=== PATIENT | male | born 1935 | race Caucasian/White ===

== ENCOUNTER 2016-10-13 13:31 | Emergency (ER) | payer OTHER, MEDICARE ==
[~2016-10-13] VITALS: Ht 157.5 cm; Wt 67.7 kg
[~2016-10-13 13:31] MED LIST: DYAZ37.57 PO; GAS-CAP3 PO; MUCI600T PO; TERA1 PO; ZEGE20CA PO
[2016-10-13 13:40] VITALS: BP 186/74; PULSE 50; RESP 18; TEMP 97.8
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
[2016-10-13] MEDS ORDERED: TETANUS/DIPHTHERIA TOXOID ADULT 0.5 ML VIAL IM ONE (14:00)
[2016-10-13] MEDS ORDERED: ACETAMINOPHEN/HYDROcodone 325 MG/5 MG TAB PO ONE (14:00)
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
[2016-10-13] MEDS ORDERED: BACI500O9 TOPICAL (16:54)
[2016-10-13 17:28] VITALS: BP 171/81; PULSE 81; RESP 18; O2SAT 97
== END 2016-10-13 17:29 | disposition home or self-care (01) ==
LOC: NEPE 13:31
DX: S20.20XA Contusion of thorax, unspecified, initial encounter (principal); K80.20 Calculus of gallbladder without cholecystitis without obstruction; N28.1 Cyst of kidney, acquired; S00.81XA Abrasion of other part of head, initial encounter; S51.811A Laceration without foreign body of right forearm, initial encounter; V59.9XXA Occupant (driver) (passenger) of pick-up truck or van injured in unspecified traffic accident, initial encounter; Z23 Encounter for immunization
CPT/HCPCS: 70450; 71250; 72125; 74176; 90471; 90714

== ENCOUNTER 2016-11-30 06:09 | Day surgery (SDC) | payer MEDICARE ==
[~2016-11-30] VITALS: Ht 160 cm; Wt 65.1 kg
[~2016-11-30 06:09] MED LIST changes: +BACI500O9 TOPICAL
[2016-11-30] MEDS ORDERED: CALC1TAB87 PO (06:55)
[2016-11-30] MEDS ORDERED: LEVO50TA4 PO (06:55)
[2016-11-30] MEDS ORDERED: PARO10TA2 PO (06:55)
[2016-11-30] MEDS ORDERED: MUCI600T PO (06:55)
[2016-11-30] MEDS ORDERED: TERA2CAP3 PO (06:55)
[2016-11-30] MEDS ORDERED: MULTTAB67 PO (06:55)
[2016-11-30 06:59] VITALS: BP 192/65; PULSE 50; RESP 18; TEMP 97.9; O2SAT 98
[2016-11-30] MEDS ORDERED: IOHEXOL 350 MG/ML 100 ML BTL (for Cath Lab) OTHER ONE (07:48)
[2016-11-30] MEDS ORDERED: IOHEXOL 350 MG/ML 50 ML BTL (for Cath Lab) OTHER ONE (07:48)
[2016-11-30] MEDS ORDERED: HEPARIN-NS/PF INJ 500 ML ONE (07:51)
[2016-11-30] MEDS ORDERED: MIDAZOLAM HCL 2 MG/2 ML VIAL ONE (07:59)
[2016-11-30] MEDS ORDERED: LABETALOL HCL 100 MG/20 ML VIAL ONE (08:30)
--- NOTE | 2016-11-30 09:12 | CATHPROC ---
[employer] HIS Report Study Information Study Number Scheduled Start Study Start [id number] 11/30/2016 Nov 30 2016 7:48AM Referring Institution Admit Source Facility Department 1 Other [facility] - Scale Manager Physician and Clinical Staff Initial MD Osuna, Kevin Boyd RN, Luis A Larkin cathlab, cathlab Recorder Nadir Arreola RCIS(BS) Carey Bhandari RCIS TECH2 Procedures Performed Procedure Location (Site) Vessel Name Angiogram LV Asc. Aorta (A) Coronary Angiograms LCA Left Coronary Coronary Angiograms RCA Right Coronary L Heart Cath Equipment Time Correctional Guard Description Size Mfg Part Number Used/Scraped TRANSDUCER, TRUWAVE 07:49 CUEVA REED * [id number] Used W/STOCKCOCK [id number] *[id number] *[id number] [id number] *[id number] [id number] *[id number] [id number] *[id number] 07:49 MEDLINE INDUSTRIES PACK, CCL CUSTOM * Used *[id number] 07:49 MEDLINE PACER PEN, SKIN DUAL W/ RULER * [id number] Used [id number] 07:49 [employer] MEDICAL SHEATH, FR6.5 PRELUDE 11CM FR 6.5 038ACT Used *[id number] 07:49 [employer] MEDICAL WIRE, 3MMJ .035 180CM 180CM Used *[id number] 07:49 NAMIC MANIFOLD, 4 PORT * Used *[id number] 07:49 [employer]COMED OMNIPAQUE, 350 MG, 100ML 100ML [id number] Used 08:44 [employer]COMED OMNIPAQUE, 350 MG, 150ML 150ML [id number] Used 08:44 [employer]COMED OMNIPAQUE, 350 MG, 50ML 50ML [id number] Used [id number] 07:49 [employer]UP MEDICAL BLANKET,WARM AIR CCL * Used *[id number] History: Allergies Allergy Reaction No Known Allergies History: Risk Factors Family History of Hypertension Dyslipidemia Previous IA Previous Heart Failure Premature CAD Yes No Yes No No Prior Valve Prior PCI Prior CABG Surgery No No No Cerebrovascular Peripheral Artery Chronic Lung On Dialysis Diabetes Disease Disease Disease No No No No No History: Stress Tests Stress or Imaging Studies Performed No History: Other Disease Selection Items HTN History: Other Current Smoker Packs a Day Years Used Pack Years Yes 1 40 40 Labs Hgb (g/dl) Hct (%) WBC (l/cumm) Platelets (thousands) 12.00-18.00 37.00-55.00 4.80-10.80 140.00-450.00 12.5 37.8 6.5 222 Glucose (mg/dl) BUN (mg/dl) Creatinine (mg/dl) BUN:Creatinine (1:x) 60.00-110.00 8.00-20.00 0.10-9.00 10.00-20.00 102 12 1.1 10.9 Na (meq/l) K (meq/l) 138.00-146.00 3.80-5.10 133 5.1 INR (PTT:PT) 0.50-2.00 1.1 CPK-MB (ng/ML) 0.00-7.00 Not Drawn Medication Medication Total Dose (Bolus/Oral) Medication Total Dosage/Unit 1% XYLOCAINE 20 mL LABETOLOL 20 mg VERSED 1 mg Medications (Bolus/Oral) Medication Time Given Dosage/Unit Administered By Reason VERSED 11/30/2016 8:24:02 AM 1 mg Luis A Boyd RN 1 mg VERSED given in lab by Luis A Boyd RN in Left Forearm via Peripheral IV. Ordered by Summer Osuna. 1% XYLOCAINE 11/30/2016 8:24:04 AM 20 mL Kevin Osuna 20 mL 1% XYLOCAINE given in lab by Kevin Osuna in Right Groin via Subcutaneous. Ordered by Kevin Concepcion ms. LABETOLOL 11/30/2016 8:32:23 AM 20 mg Luis A Boyd RN 20 mg LABETOLOL given in lab by Luis A Boyd RN in Left Forearm via Peripheral IV. Ordered by Kevin Godfrey. Medication (Drip) Medication Time Given Dosage/Unit Concentration/Unit Diluent (ml) Solution IV Solutions 11/30/2016 7:48:14 AM 0 mL (IV) 500 NaCl .9 Patient arrived on IV Solutions given by pauly coats in Left Forearm via Peripheral IV. Pump/Dri p Flow = 20 ml/hr using NaCl .9. Ordered by Kevin Osuna. Initial Case Assessment Cardiovascular HR Rhythm NIBP Chest Pain 56 sinus 189/68 0 Edema Present Skin color Skin None Normal Warm Dry Circulatory - Right Pulses Dorsalis Pedis Femoral 2 2 Scale (0,1,2,3,4,d) Circulatory - Left Pulses Dorsalis Pedis Femoral 2 2 Scale (0,1,2,3,4,d) Neurological State Oriented to time-place- Alert Moves all extremities person Respiration - General Respiration Rate SpO2 (%) (B/min) 17 98 Final Case Assessment Cardiovascular HR Rhythm NIBP Chest Pain 47 alexis 168/77 0 Edema Present Skin color Skin None Normal Warm Dry Circulatory - Right Pulses Dorsalis Pedis Femoral 2 2 Scale (0,1,2,3,4,d) Circulatory - Left Pulses Dorsalis Pedis Femoral 2 2 Scale (0,1,2,3,4,d) Neurological State Oriented to time-place- Alert Moves all extremities person Respiration - General Respiration Rate SpO2 (%) (B/min) 17 95 Chronological Log Time Study Chronological Log 7:48:03 Patient arrived via Bed. 7:48:04 Patient Name, D.O.B, / Armband Verified By R.N. 7:48:04 Consent signed by the physician and the patient and verified by the Scale Manager staff. 7:48:05 Pre-op and post- op instructions given; patient acknowledges understanding of instructions. 7:48:07 Presedation assessment performed by Scale Manager RN. 7:48:08 Immediate Presedation assesment performed by physician. 7:48:09 Patient has been NPO for More than 6Hrs. 7:48:10 Skin Breakdown- 7:48:13 Patient Warmer Placed on the Table. 7:48:13 Gurinder Prominences Protected 7:48:14 A # 20 IV was noted in the Forearm (left). Grade = 0 Patient arrived on IV Solutions given by cathlab, cathashok in Left Forearm via Peripheral IV. Pu mp/Drip Flow = 20 ml/hr 7:48:14 using NaCl .9. Ordered by Kevin Osuna. 7:48:15 History and physical on the chart or being dictated. Vitals capture started with the following parameters, Patient=Adult, Interval=5 min, Initial Pr kzqxvw=514 mmHg, 7:55:32 Deflation Rate=5 mmHg Assessment: Initial Case, HR=56 BPM, Rhythm=sinus, UDEN=154/68 mmhg, Chest Pain=0, Edema=None, Color=Normal, Skin = Warm, Dry Right Pulses: Zaire Ped=2, Femoral=2 7:55:33 Left Pulses: Z[place] Ped=2, Femoral=2 Neurological: State=Alert, Ox3, GAMBOA Respiration: Resp=17 B/min, SpO2=98 % 7:56:01 Reference ECG taken 7:56:56 HR=54 bpm, KDSH=195/68 mmhg, SpO2=98.0 %, Resp=15 B/min, Pain=0, Dao=10, Parmar=2 8:01:59 HR=55 bpm, IRBV=111/71 mmhg, SpO2=97.0 %, Resp=14 B/min, Pain=0, Dao=10, Parmar=2 8:02:46 Pressure channel 1 zeroed. 8:03:16 MD paged 8:04:25 MD responded 8:06:23 HR=52 bpm, SPRK=697/67 mmhg, SpO2=98.0 %, Resp=12 B/min, Pain=0, Dao=10, Parmar=2 8:11:59 HR=50 bpm, SAVO=956/66 mmhg, SpO2=96.0 %, Resp=15 B/min, Pain=0, Dao=10, Parmar=2 8:16:19 HR=50 bpm, YFXD=531/66 mmhg, SpO2=98.0 %, Resp=12 B/min, Pain=0, Dao=10, Parmar=2 8:19:22 MD arrived. 8:19:29 Contrast Scanned 8:19:30 Immediate Presedation assesment performed by physician. 8:21:22 HR=49 bpm, KSGB=377/70 mmhg, SpO2=96.0 %, Resp=10 B/min, Pain=0, Dao=10, Parmar=2 Time Out. Correct patient, correct procedure,correct physician, ,power injector loaded with cont rast with surgical team 8:23:19 present. Time Out Concurred by , individual staff in procedure 8:23:31 Case Start 8:23:31 Verbal Stimulation=2 Physical Stimulation=2 Airway=2 Respiration=2 TOTAL=8. (0=absent, 1=yuan ited, 2=present) 8:24:02 1 mg VERSED given in lab by Luis A Boyd RN in Left Forearm via Peripheral IV. Ordered by Kevin Gross. 8:24:04 20 mL 1% XYLOCAINE given in lab by Kevin Osuna in Right Groin via Subcutaneous. Ordered by Kevin Osuna. 8:26:19 HR=52 bpm, JOPK=709/69 mmhg, SpO2=97.0 %, Resp=11 B/min, Pain=0, Dao=10, Parmar=2 8:27:37 Access site was Right Femoral Artery. 8:27:43 A SHEATH, FR6.5 PRELUDE 11CM FR 6.5 was advanced into the Fem Art (right) using the Percutan eous technique. A JL 4.0 INFINITI CATHETER FR 6 was advanced over a wire. OMNIPAQUE, 350 MG, 100ML 100ML was use d for 8:27:48 injections. Recorded Pressure: Ao, HR=50, Condition=Condition 1 8:29:59 (Aorta) Ao 178/51/93 After removing the current catheter a JL 5.0 INFINITI CATHETER FR 6 was advanced over a WIRE, 3M MJ .035 180CM 8:30:59 180CM. 8:31:22 HR=51 bpm, GRFA=700/75 mmhg, SpO2=96.0 %, Resp=18 B/min, Pain=0, Dao=10, Parmar=2 8:32:23 20 mg LABETOLOL given in lab by Luis A Boyd RN in Left Forearm via Peripheral IV. Ordered b Kevin Shi. 8:34:47 The LCA was injected and visualized at various angles. OMNIPAQUE, 350 MG, 100ML 100ML used. 8:36:21 HR=43 bpm, HXLG=684/65 mmhg, SpO2=95.0 %, Resp=11 B/min, Pain=0, Dao=10, Parmar=2 After removing the current catheter a JR 4.0 INFINITI CATHETER FR 6 was advanced over a WIRE, 3M MJ .035 180CM 8:37:06 180CM. 8:38:47 The RCA was injected and visualized at various angles. OMNIPAQUE, 350 MG, 100ML 100ML used. After removing the current catheter a PIGTAIL STR INFINITI CATHETER FR 6 was advanced over a WIR E, 3MMJ .035 8:40:36 180CM 180CM. 8:41:22 HR=48 bpm, DISN=870/63 mmhg, SpO2=93.0 %, Resp=11 B/min, Pain=0, Dao=10, Parmar=2 Recorded Pressure: LV, Ao, HR=78, Condition=Condition 1 8:42:59 (Left Ventricle) LV 107/8/7, (Aorta) Ao 153/43/78 8:43:39 The Asc. Aorta (A) was injected at 20 cc/sec for a total of 40. OMNIPAQUE, 350 MG, 50ML 50 ML used. 8:45:27 Catheter was removed 8:45:31 Case End 8:46:17 HR=47 bpm, UAYJ=011/77 mmhg, SpO2=93.0 %, Resp=14 B/min, Pain=0, Dao=10, Parmar=2 Assessment: Final Case, HR=47 BPM, Rhythm=alexis, OEXF=408/77 mmhg, Chest Pain=0, Edema=None, Color=Normal, Skin = Warm, Dry Right Pulses: Zaire Ped=2, Femoral=2 8:46:37 Left Pulses: Zaire Ped=2, Femoral=2 Neurological: State=Alert, Ox3, GAMBOA Respiration: Resp=17 B/min, SpO2=95 % 8:47:57 Catheter(s) removed without difficulty Vitals capture started with the following parameters, Patient=Adult, Interval=5 min, Initial P vikqqfb=552 mmHg, 8:48:03 Deflation Rate=5 mmHg 8:48:10 No case complications noted. 8:48:11 Cine recording checked. 8:48:13 Bedside Report will be given. 8:48:16 Verbal Stimulation=2 Physical Stimulation=2 Airway=2 Respiration=2 TOTAL=8. (0=absent, 1=l imited, 2=present) 8:48:23 A Left Heart Cath was performed. 8:48:47 HR=47 bpm, WIHZ=451/68 mmhg, SpO2=95.0 %, Resp=14 B/min, Pain=0, Dao=10, Parmar=2 8:49:35 Sheath removed; pressure applied to access site. 8:53:46 HR=43 bpm, SQTW=856/79 mmhg, SpO2=92.0 %, Resp=15 B/min, Pain=0, Dao=10, Parmar=2 8:58:47 HR=44 bpm, YUXM=836/70 mmhg, SpO2=93.0 %, Resp=16 B/min, Pain=0, Dao=10, Parmar=2 9:03:48 HR=42 bpm, ZFAD=756/67 mmhg, SpO2=92.0 %, Resp=15 B/min, Pain=0, Dao=10, Parmar=2 9:08:49 HR=44 bpm, KFRP=162/62 mmhg, SpO2=94.0 %, Resp=13 B/min 9:09:00 Sterile dressing applied to site 9:10:14 Vitals capture stopped. 9:12:[address] [facility] Study - Contrast Media Used In Study Contrast Total Opened (mL) Total Used (mL) Total Wasted (mL) Omnipaque 110 110 0 End Study - Maximum Contrast Load Max Contrast Load (mL) 295.9 End Study - Radiation Exposure Fluoro Time (minutes) 5.5 End Study - Sheaths Sheaths Pulled By Sheath Hold Time (min) Carey Ty 20 End Study - Patient Disposition Complications Transferred To Interventional Outcome No Scale Manager Holding No attempt made
[2016-11-30] MEDS ORDERED: SODIUM CHLOR 0.9% 250 ML INJ 250 ML IV PRN (09:45)
[2016-11-30] MEDS ORDERED: ATROPINE SULFATE 1 MG/ML VIAL IV PRN (09:45)
[2016-11-30] MEDS ORDERED: LORazepam 2 MG/ML VIAL IV PRN (09:45)
[2016-11-30] MEDS ORDERED: ONDANSETRON HCL 4 MG/2 ML VIAL IV PRN (09:45)
[2016-11-30] MEDS ORDERED: BACITRACIN OINT 0.9 GM PKT TOP ONE (09:45)
[2016-11-30] MEDS ORDERED: MISC INFORMATION XX ONE (09:45)
[2016-11-30] MEDS ORDERED: LIDOCAINE HCL 1% 50 ML VIAL INFIL PRN (09:45)
--- NOTE | 2016-11-30 11:00 | MA ---
cc: KEVIN OSUNA MD DATE 11/30/2016 PROCEDURE NOTE The patient was prepped and draped in the usual fashion. A 7 sheath was inserted percutaneously in the right femoral artery. Initial blood pressure was 190/80. 20 mg of labetalol was given with decrease in systolic blood pressure to 165 to 175. CORONARY ANGIOGRAPHY It was noted that the patient's aorta was extremely tortuous and dilated. Coronary angiography demonstrated a normal left main. The left anterior descending artery was essentially normal throughout its course. The left circumflex artery was normal throughout its course. The right coronary was anatomically dominant and normal throughout its course. Ascending aortogram was done revealing somewhat dilated ascending aortogram as well as transverse and descending aortas. +4 aortic insufficiency was present with an EF in the JAYSON projection estimated at 50%. Some degree of mitral regurgitation was also present. Hemostasis was achieved with direct pressure. IMPRESSION AND RECOMMENDATIONS The findings are as above. He would appear to be a candidate for aortic valve replacement and mitral valve repair. We will also discuss with the surgeons possible need for aortoplasty as well Kevin Osuna MD DLW/SSB /8:53 AM /10:48 AM
--- NOTE | 2016-11-30 11:26 | PD.CAR.PN ---
CVT Progress Note Subjective/Hospital Course: sts discussed with pt RISK SCORES About the STS Risk Calculator Procedure: AV Replacement Risk of Mortality: 3.46% Morbidity or Mortality: 25.973% Long Length of Stay: 11.631% Short Length of Stay: 20.43% Permanent Stroke: 1.982% Prolonged Ventilation: 14.135% DSW Infection: 0.278% Renal Failure: 6.668% Reoperation: 13.045% Objective: Vital Signs Date Time Temp Pulse Resp B/P Pulse Ox O2 Delivery O2 Flow Rate FiO2 11/30/16 09:23 95 Room Air 11/30/16 06:59 97.9 50 18 192/65 98 Gloria Dodd November 30, 2016 11:25
--- NOTE | 2016-11-30 12:13 | MB ---
cc: BARBARA YOUNG DATE OF CONSULTATION: 11/30/2016 DATE OF : 1935 HISTORY OF PRESENT ILLNESS An 81-year-old male, routine visit with Dr. Osuna with history of aortic regurgitation, moderate mitral valve regurgitation and tricuspid regurgitation. His last echo apparently showed a decrease to 50% with some mild increase in left ventricular diastolic dimension. The patient remains asymptomatic. No chest pain. No paroxysmal nocturnal dyspnea. No shortness of breath. No syncope. The patient lives with his . He still drives. He has some very minimal balance disturbance but he goes to the gym three days a week. 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 PAST MEDICAL HISTORY 1. Anemia. 2. Anxiety. 3. Mild cognitive disorder. 4. Depression. 5. Benign prostatic hypertrophy. 6. Gastritis. 7. Gastroesophageal reflux disease. 8. Hypertension. 9. Hypothyroidism. 10.Valvular heart disease. 11.Prostate cancer five years ago. PAST SURGICAL HISTORY 1. Bilateral cataract surgery. 2. Colonoscopy. 3. EGD. 4. Left inguinal hernia repair. 5. Prostate surgery. ALLERGIES He has no known allergies. MEDICATIONS His home medications include: 1. Calcium carbonate. 2. Levothyroxine. 3. Mucinex. 4. Multivitamin. 5. Paxil. 6. Terazosin at night. FAMILY HISTORY The patient is , lives with his . Five children. Retired teacher. Smoked for about 30 years, quit 4 years ago. He is from [facility] but has lived here for a long time. His is a retired nurse from our facility. REVIEW OF SYSTEMS GENERAL: In general no night sweats, fever, heat or cold intolerance. SKIN: No psoriasis, itching or hives. HEENT: No blurred vision. Positive for some mild hearing loss. RESPIRATORY: No cough or shortness of breath. CARDIOVASCULAR: No chest pain. No paroxysmal nocturnal dyspnea. No orthopnea. GASTROINTESTINAL: No diarrhea or vomiting. GENITOURINARY: No burning, frequency, urgency. REGISTERED NURSE SUPERVISOR: No history of TIA, CVA, seizure disorder. ENDOCRINE: Positive for hypothyroidism. No history of diabetes. PHYSICAL EXAMINATION VITAL SIGNS: Blood pressure 190/60, heart rate 50, temperature 97.9, room air sat 95%. GENERAL: Patient is awake and alert, in no acute distress. HEENT: Head is normocephalic, atraumatic. Pupils equal and reactive. Oral mucosa pink and moist. NECK: Supple. No JVD. HEART: Heart sounds S1, S2. There is a grade 2 systolic murmur at the apex, a grade 2/6 diastolic murmur at the left sternal border. ABDOMEN: Soft, flat, nontender. EXTREMITIES: No cyanosis, clubbing or edema. LABORATORY Sodium 133, potassium 5.1, BUN 12, creatinine 1.15. INR 1.1. Hemoglobin 12, hematocrit 37, white cell count 6.5, platelet count 222. EKG EKG: Sinus rhythm with some LVH, some ST T-wave inversion secondary to his extensive LVH. IMPRESSION This is an 81-year-old male with moderate to severe aortic insufficiency, moderate mitral regurgitation. Cardiac films will be evaluated by Dr. Barbara Young. The patient's EF is 50% with no evidence of occlusive coronary artery disease. The patient will be evaluated for aortic valve replacement. Procedures, alternatives and risks will be discussed by Dr. Barbara Young. In the meantime he is to continue his blood pressure medication. He has no medicine that needs to be held. He does have some advanced age so he will need a CT of the chest to evaluate for calcification on the aorta and evaluation for surgery with risk mortality is 3.46, morbidity mortality 25, renal failure 6%. All these will be discussed with the patient and documented in the electronic record. Dictated by: MARBELLA Bowie MD JANICE Fernandez/TRISTAN /11:30 AM /12:14 PM
--- NOTE | 2016-11-30 12:44 | RADRPT ---
EXAM DATE/TIME: 11/30/2016 11:51 [facility] COMPARISON: No previous studies available for comparison. INDICATIONS : Preop aortic valve replacement. MEDICAL HISTORY : Hernia, hiatal. Arthritis. Thyroid disease. HTN. GERD. Ulcer. Enlarged prostate. SURGICAL HISTORY : Bilateral cataracts. Bilateral inguinal hernia repair. Nasal polyps. ENCOUNTER: Initial ACUITY: 1 day PAIN SCORE: 0/10 LOCATION: Bilateral neck PEAK SYSTOLIC VELOCITIES (cm/sec): ICA/CCA RATIO: Right: 1.2 Left: 1.0 ICA: Right: 82 Left: 81 CCA: Right: 71 Left: 80 ECA: Right: 58 Left: 56 VERTEBRAL: Right: 61 antegrade Left: 104 antegrade Elevated flow velocities and ICA/CCA ratios have been found to correlate with increased degrees of vessel stenosis, calculated as percentage of diameter relative to a normal segment of distal ICA/CCA FINDINGS: RIGHT CAROTID: No significant stenosis is visualized. The waveforms are within normal limits. LEFT CAROTID: No significant stenosis is visualized. The waveforms are within normal limits. VERTEBRAL ARTERIES: Antegrade flow is seen in both vertebral arteries. MISCELLANEOUS: None. CONCLUSION: No evidence of flow-limiting carotid stenosis. Radames Funk MD on November 30, 2016 at 12:41 Board Certified Radiologist. This report was verified electronically.
[2016-11-30 12:49] LABS: AUTOMATED NEUTROPHIL # 4.3 TH/MM3 (1.8-7.7); BASOPHIL # 0.1 TH/MM3 (0-0.2); EOSINOPHIL # 0.1 TH/MM3 (0-0.4); EOSINOPHIL % 1.4 % (0.0-4.0); HEMATOCRIT 35.7 % (39.0-51.0); HEMO FLAGS DIFF FINAL; LYMPH % 17.3 % (9.0-44.0); MEAN CELL VOLUME 91.7 FL (80.0-100.0); MEAN CORPUSCULAR HEMOGLOBIN 30.4 PG (27.0-34.0); MEAN CORPUSCULAR HGB CONC 33.1 % (32.0-36.0); MONO % 5.9 % (0.0-8.0); NEUT % 74.4 % (16.0-70.0); PLATELET COUNT 184 TH/MM3 (150-450); RED BLOOD COUNT 3.89 MIL/MM3 (4.50-5.90); RED CELL DISTRIBUTION WIDTH 13.6 % (11.6-17.2); WHITE BLOOD COUNT 5.8 TH/MM3 (4.0-11.0)
[2016-11-30 12:59] LABS: PROTHROMBIN TIME - PATIENT 11.4 SEC (9.8-11.6)
[2016-11-30 13:05] LABS: BLOOD, URINE NEG (NEG); GLUCOSE,URINE NEG (NEG); KETONE, URINE NEG (NEG); NITRITE,URINE NEG (NEG); PH, URINE 7.5 (5.0-8.5); URINE COLOR LIGHT-YELLOW (YELLW/STRAW)
[2016-11-30 13:10] LABS: COMMENT (UR) CULT NOT INDICATED; CULTURE IF INDICATED CULT NOT INDICATED
[2016-11-30 13:12] LABS: ANION GAP 8 MEQ/L (5-15); BICARBONATE 27.1 MEQ/L (21.0-32.0); BLOOD UREA NITROGEN 11 MG/DL (7-18); CHLORIDE 97 MEQ/L (98-107); POTASSIUM 4.2 MEQ/L (3.5-5.1); SODIUM (NA) 132 MEQ/L (136-145)
[2016-11-30 13:13] LABS: GLOMERULAR FILTRATION RATE 74 ML/MIN (>89)
--- NOTE | 2016-11-30 15:48 | RADRPT ---
EXAM DATE/TIME: 11/30/2016 15:34 [facility] COMPARISON: CT THORAX W/O CONTRAST, October 13, 2016, 15:35. INDICATIONS : Pre-operative aortic valve replacement, evaluate for aortic calcification. RADIATION DOSE: 4.01 CTDIvol (mGy) MEDICAL HISTORY : Cardiovascular disease. Gastroesophageal reflux disease. Hypertension. SURGICAL HISTORY : Inguinal hernia repair. ENCOUNTER: Initial ACUITY: 1 day PAIN SCALE: 0/10 LOCATION: Bilateral chest TECHNIQUE: Volumetric scanning of the chest was performed. Using automated exposure control and adjustment of t he mA and/or kV according to patient size, radiation dose was kept as low as reasonably achievable to obtain optimal diagnostic quality images. FINDINGS: LUNGS: There is no consolidation or pneumothorax. No concerning pulmonary nodule is visualized. There is mi ld scarring. PLEURAE: There is no pleural thickening or pleural effusion. MEDIASTINUM: The heart and great vessels demonstrate no acute abnormality. There is no mediastinal or hilar lymph adenopathy. There are minimal calcifications along the periphery of the aortic valve region. The hear t size is moderately enlarged with no pericardial effusion. Atherosclerotic changes are again noted i n the aorta with dilatation and tortuosity. This does not appear significantly changed. AXILLAE: Within normal limits. No lymphadenopathy. MUSCULOSKELETAL: Within normal limits for patient age. MISCELLANEOUS: The visualized upper abdominal organs demonstrate no acute abnormality. CONCLUSION: 1. There are minimal calcifications along the periphery of the aortic valve region. No definite centr al calcifications. 2. Moderate cardiomegaly and dilatation of the thoracic aorta with tortuosity. This is not significa ntly changed. Canelo Turner MD on November 30, 2016 at 15:44 Board Certified Radiologist. This report was verified electronically.
--- NOTE | 2016-11-30 16:01 | RADRPT ---
EXAM DATE/TIME: 11/30/2016 15:09 [facility] COMPARISON: CT THORAX W/O CONTRAST, November 30, 2016, 15:34. INDICATIONS : Pre op for surgery. MEDICAL HISTORY : Hiatal hernia. Arthritis. Thyroid disease. HTN. GERD. Ulcer. Enlarged prostate. SURGICAL HISTORY : Bilateral inguinal hernia repair. Nasal polyps. ENCOUNTER: Initial ACUITY: 2 days PAIN SCORE: 6/10 LOCATION: Bilateral upper chest FINDINGS: Frontal and lateral views of the chest demonstrate mild enlargement cardiac silhouette with tortuous descending thoracic aorta. No effusion, consolidation, or pneumothorax is appreciated. Bones demonstr ate no acute finding. CONCLUSION: 1. No acute cardiopulmonary abnormality is identified. 2. Very tortuous descending thoracic aorta. Radames Evangelista MD on November 30, 2016 at 15:57 Board Certified Radiologist. This report was verified electronically.
[2016-11-30 18:15] LABS: HEMOGLOBIN A1a 1.1 %; HEMOGLOBIN A1b 1.7 %; HEMOGLOBIN Ao 85.1 %; HEMOGLOBIN LA1C 2.2 %; HEMOGLOBIN P3 3.6 %
--- NOTE | 2016-12-01 15:41 | EKG ---
Date Performed: 11/30/2016 Time Performed: 10:56:00 PTAGE: 81 years EKG: Sinus bradycardia. Prolonged QT interval LVH with secondary repolarization abnormality Exte nsive ST-T changes are probably due to ventricular hypertrophy Abnormal ECG Compared to prior tracing no significant change PREVIOUS TRACING : 01/27/2013 14.43 DOCTOR: Davy Abad Interpretating Date/Time 12/01/2016 15:40:49
--- NOTE | 2016-12-02 08:23 | RSPPFT ---
DATE OF PROCEDURE: 11/30/16 COMMENTS: VOLUMES DYNAMIC: FVC and FEV1 normal. FLOWS: FEV1% and FEF 25-75 normal. IMPRESSION: Normal simple spirometry.
--- NOTE | 2016-12-16 11:44 | RSPPFT ---
DATE OF PROCEDURE: 11/30/16 COMMENTS: VOLUMES DYNAMIC: FVC and FEV1 normal. FLOWS: FEV1% and FEF 25-75 normal. IMPRESSION: This is a normal simple spirometry.
== END 2016-11-30 16:16 | disposition home or self-care (01) ==
LOC: HDOC 06:09 → HDIC 06:10 → HDOC 16:16
PROVIDERS: ATTEND Internal Medicine Cardiovascular Disease
DX: I08.0 Rheumatic disorders of both mitral and aortic valves (principal); I10 Essential (primary) hypertension; E03.9 Hypothyroidism, unspecified; F41.9 Anxiety disorder, unspecified; K21.9 Gastro-esophageal reflux disease without esophagitis; F32.9 Major depressive disorder, single episode, unspecified; N40.0 Benign prostatic hyperplasia without lower urinary tract symptoms; Z85.46 Personal history of malignant neoplasm of prostate; Z01.818 Encounter for other preprocedural examination; Z01.811 Encounter for preprocedural respiratory examination
CPT/HCPCS: 71020; 71250; 80048; 81001; 83036; 85025; 85610; 86850; 86900; 86901; 87641; 93005; 93454; 93567; 93880; 94010; C1769; C1893; J1644; J2250; Q9967

== ENCOUNTER 2016-12-11 07:48 | Inpatient (IN) | payer MEDICARE ==
[~2016-12-11] VITALS: Ht 157.5 cm; Wt 70.0 kg
[~2016-12-11 07:48] MED LIST changes: -BACI500O9 TOPICAL; +CALC1TAB87 PO; -DYAZ37.57 PO; -GAS-CAP3 PO; +LEVO50TA4 PO; +MULTTAB67 PO; +PARO10TA2 PO; -TERA1 PO; +TERA2CAP3 PO; -ZEGE20CA PO
[2016-12-14] VITALS (14 sets, daily range): BP systolic 94–187; BP diastolic 51–76; PULSE 46–54; RESP 12–20; TEMP 97.7–98.6; O2SAT 96–99
[2016-12-14] MEDS ORDERED: EPINEPHrine HCL (1:1000) 1 MG/ML VIAL IV ONE (05:00)
[2016-12-14] MEDS ORDERED: PHENYLEPHRINE HCL 10 MG/ML VIAL IV ONE (05:00)
[2016-12-14] MEDS ORDERED: LIDOCAINE HCL 1% 30 ML VIAL OTHER ONE (05:00)
[2016-12-14] MEDS ORDERED: SODIUM BICARBONATE 8.4% INJ 50 MEQ/50 ML SYR IV ONE (05:00)
[2016-12-14] MEDS ORDERED: VECURONIUM BROMIDE 10 MG VIAL IV ONE (05:00)
[2016-12-14] MEDS ORDERED: GLYCOPYRROLATE 0.2 MG/ML VIAL IV ONE (05:00)
[2016-12-14] MEDS ORDERED: PROTAMINE SULFATE 250 MG/25 ML VIAL IV ONE (05:00)
[2016-12-14] MEDS ORDERED: MAGNESIUM SULFATE 1000 MG/2 ML VIAL (PED) IV ONE (05:00)
[2016-12-14] MEDS ORDERED: ARTIFICIAL TEARS OPTH OINT 3.5 APPLIC/3.5 GM TUBO ONE (05:00)
[2016-12-14] MEDS ORDERED: HEPARIN SODIUM - SQ 10,000 UNITS/ML VIAL SQ ONE (05:00)
[2016-12-14] MEDS ORDERED: AMINOCAPROIC ACID INJ 250 MG/ML 20 ML VIAL IV ONE ×2 (05:00→12:00)
[2016-12-14] MEDS ORDERED: CALCIUM CHLORIDE 10% SOLN 1 GRAM/10 ML SYR IV ONE (05:00)
[2016-12-14] MEDS ORDERED: ceFAZolin 2 GM PREMIX 50 ML IV SCH (06:00)
[2016-12-14] MEDS ORDERED: CEFAZOLIN 500 MG in NS IRR BTL 500 ML IRRIGATION SCH (06:00)
[2016-12-14] MEDS ORDERED: INSULIN REGULAR 100 UNITS in NS 100 ML IV SCH (06:00)
[2016-12-14] MEDS ORDERED: METOPROLOL TARTRATE 25 MG TAB PO SCH (06:00)
[2016-12-14] MEDS ORDERED: CHLORHEXIDINE GLUCONATE 4% SOLN 120 ML BTL TOPICAL SCH (06:00)
[2016-12-14] MEDS ORDERED: CHLORHEXIDINE GLUCONATE 2 % 1 PACK (2 CLOTHS) TOPICAL PRN (06:00)
[2016-12-14] MEDS ORDERED: LACTATED RINGER'S 1000 ML IV PRN (06:00)
[2016-12-14] MEDS ORDERED: SODIUM CHLORID 0.9% 500 ML IV PRN (06:00)
[2016-12-14] MEDS ORDERED: POVIDONE IODINE 5% (ANTISEPSIS KIT) 4 APPLICATIONS EACH NARE PRN (06:00)
[2016-12-14] MEDS ORDERED: MUCI60TA9 PO (06:30)
[2016-12-14] MEDS ORDERED: ESSE250T PO (06:30)
[2016-12-14] MEDS ORDERED: BUPIVACAINE HCL PF 0.5% 30 ML VIAL ONE (06:41)
[2016-12-14] MEDS ORDERED: VANCOMYCIN HCL 1000 MG VIAL ONE (06:41)
[2016-12-14] MEDS ORDERED: ceFAZolin 2 GM PREMIX 50 ML ONE (06:41)
[2016-12-14] MEDS ORDERED: HEPARIN SODIUM - SQ 10,000 UNITS/ML VIAL ONE (06:42)
[2016-12-14] MEDS ORDERED: methylPREDNISolone SOD SUCC 125 MG/2 ML VIAL ONE (06:42)
[2016-12-14] MEDS ORDERED: POTASSIUM CHLORIDE 40 MEQ/20 ML VIAL ONE (07:10)
[2016-12-14] MEDS ORDERED: SODIUM BICARBONATE 8.4% INJ 50 ML ONE (07:10)
[2016-12-14] MEDS ORDERED: CUSTODIOL HTK IRR SOLN 1,000 ML ONE (07:10)
[2016-12-14] MEDS ORDERED: HEPARIN SODIUM - IV 10,000 UNITS/10 ML VIAL ONE (07:11)
[2016-12-14] MEDS ORDERED: MANNITOL INJ 50 ML ONE (07:11)
[2016-12-14] MEDS ORDERED: ALBUMIN HUMAN 25% 12.5 GM/50 ML BAGP IV ONE (07:12)
[2016-12-14] MEDS ORDERED: SODIUM CHLORIDE 0.9% FLUSH 10 ML FLUSH IV FLUSH PRN ×2 (07:30→12:15)
[2016-12-14] MEDS ORDERED: ceFAZolin INJ 1,000 MG VIAL IV ONE (11:40)
[2016-12-14] MEDS ORDERED: NORMOSOL R INJ 2,000 ML IV ONE (12:00)
[2016-12-14] MEDS ORDERED: SODIUM CHLORIDE 0.9% INJ 250 ML IV ONE (12:00)
[2016-12-14] MEDS ORDERED: SODIUM CHLORIDE 0.9% INJ 200 ML IV ONE (12:00)
[2016-12-14] MEDS ORDERED: SODIUM CHLOR 0.9% 1000 ML INJ 3,000 ML IV ONE (12:00)
[2016-12-14] MEDS ORDERED: CARDIOPLEGIC IRR 1,000 ML ONE (12:00)
[2016-12-14] MEDS ORDERED: LACTATED RINGER'S 1000 ML INJ 2,000 ML IV ONE (12:00)
[2016-12-14] MEDS ORDERED: LACTATED RINGER'S 1000 ML INJ 500 ML IV PRN (12:11)
[2016-12-14] MEDS ORDERED: EPINEPHrine (1:1000) INJ 4 MG in DEXTROSE 5% IN WATER INJ 246 ML IV SCH ×2 (12:15)
[2016-12-14] MEDS ORDERED: Post-op Orders (for Pharmacy) MISC OTHER ONE (12:15)
[2016-12-14] MEDS ORDERED: POTASSIUM CHLORIDE 20 MEQ CONTROLLED RELEASE TAB PO PRN ×2 (12:15)
[2016-12-14] MEDS ORDERED: ONDANSETRON HCL 4 MG/2 ML VIAL IV PUSH PRN (12:15)
[2016-12-14] MEDS ORDERED: CLEVIDIPINE INJ 50 ML IV SCH (12:15)
[2016-12-14] MEDS ORDERED: MAGNESIUM SULFATE INJ 2 GM in SODIUM CHLORIDE 0.9% INJ 100 ML IV PRN ×4 (12:15)
[2016-12-14] MEDS ORDERED: METOPROLOL TARTRATE 5 MG/5 ML VIAL IV PUSH PRN (12:15)
[2016-12-14] MEDS ORDERED: DEXTROSE 50% IN WATER 50 ML VIAL(D50) IV PUSH PRN (12:15)
[2016-12-14] MEDS ORDERED: RESP: RACEPINEPHRINE 2.25% 0.5 ML NEB NEB PRN (12:15)
[2016-12-14] MEDS ORDERED: INSULIN REGULAR (IV INFUSION) 100 UNITS in SODIUM CHLORIDE 0.9% INJ 99 ML IV SCH (12:15)
[2016-12-14] MEDS ORDERED: CALCIUM CHLORIDE 10% 1 GRAM/10 ML VIAL IV PRN (12:15)
[2016-12-14] MEDS ORDERED: hydrALAZINE HCL 20 MG/ML VIAL IV PRN (12:15)
[2016-12-14] MEDS ORDERED: POTASSIUM CHLOR 20 MEQ PREMIX 100 ML IV PRN ×3 (12:15)
[2016-12-14] MEDS ORDERED: ACETAMINOPHEN 325 MG TAB PO PRN (12:15)
[2016-12-14] MEDS ORDERED: oxyCODONE/ACETAMINOPHEN 5 MG/325 MG TAB PO PRN (12:15)
[2016-12-14] MEDS ORDERED: RESP: ALBUTEROL 2.5 MG/IPRATROPIUM 0.5 MG NEB (PRN) NEB (12:15)
[2016-12-14] MEDS ORDERED: ACETAMINOPHEN 650 MG SUPP RECTAL PRN (12:15)
[2016-12-14] MEDS ORDERED: POTASSIUM CHLOR 40 MEQ PREMIX 100 ML ONE (13:12)
--- NOTE | 2016-12-14 13:21 | RADRPT ---
EXAM DATE/TIME: 12/14/2016 12:53 [facility] COMPARISON: CHEST PA & LAT, November 30, 2016, 15:09. INDICATIONS : Post op CABG. MEDICAL HISTORY : Cardiovascular disease. Gastroesophageal reflux disease. Hypertension. SURGICAL HISTORY : Inguinal hernia repair. ENCOUNTER: Initial ACUITY: 1 day PAIN SCORE: Non-responsive. LOCATION: chest FINDINGS: The endotracheal tube, nasogastric tube and the right-sided chest tube are all in good position. Ther e is right-sided venous catheter in good position. There are mild atelectatic changes at the left katie g base. No pneumothorax is present. The heart is normal in size. CONCLUSION: Stable postoperative chest. Support equipment in satisfactory position. Ray Bloom MD on December 14, 2016 at 13:18 Board Certified Radiologist. This report was verified electronically.
[2016-12-14] MEDS ORDERED: fentaNYL CITRATE 1000 MCG/20 ML VIAL ONE (13:22)
[2016-12-14] MEDS ORDERED: MIDAZOLAM HCL 5 MG/5 ML VIAL ONE (13:22)
[2016-12-14] MEDS: ACETAMINOPHEN 1000 MG/100 ML VIAL IV SCH ×2 (13:59→19:58)
[2016-12-14] MEDS: PARoxetine HCL 20 MG TAB PO SCH (15:00)
[2016-12-14] MEDS: CALCIUM CHLORIDE INJ 1 GM in SODIUM CHLORIDE 0.9% INJ 100 ML IV PRN ×2 (16:57→19:58)
[2016-12-14] MEDS: RESP: ALBUTEROL 2.5 MG/IPRATROPIUM 0.5 MG NEB (SCH) NEB ×2 (17:06→22:28)
[2016-12-14] MEDS: guaiFENesin E.R. 600 MG TAB PO SCH (22:10)
[2016-12-14] MEDS: SODIUM CHLORIDE 0.9% FLUSH 10 ML FLUSH IV FLUSH SCH (22:11)
[2016-12-14] MEDS: TERAZOSIN HCL 1 MG CAP PO SCH (22:11)
[2016-12-15] VITALS (19 sets, daily range): BP systolic 98–144; BP diastolic 52–92; PULSE 48–73; RESP 16–20; TEMP 97.7–98.9; O2SAT 93–98
[2016-12-15] MEDS: ACETAMINOPHEN 1000 MG/100 ML VIAL IV SCH ×2 (00:16→06:17)
[2016-12-15] MEDS: RESP: ALBUTEROL 2.5 MG/IPRATROPIUM 0.5 MG NEB (SCH) NEB ×6 (04:47→20:15)
[2016-12-15 05:02] LABS: HEMATOCRIT 26.2 % (39.0-51.0); MEAN CORPUSCULAR HEMOGLOBIN 30.4 PG (27.0-34.0); MEAN CORPUSCULAR HGB CONC 33.1 % (32.0-36.0); PLATELET COUNT 116 TH/MM3 (150-450); RED BLOOD COUNT 2.84 MIL/MM3 (4.50-5.90); RED CELL DISTRIBUTION WIDTH 14.1 % (11.6-17.2); REVIEW FLAG FINAL
[2016-12-15 05:26] LABS: BICARBONATE 27.7 MEQ/L (21.0-32.0); MAGNESIUM 1.9 MG/DL (1.5-2.5); POTASSIUM 3.9 MEQ/L (3.5-5.1)
--- NOTE | 2016-12-15 05:53 | RADRPT ---
EXAM DATE/TIME: 12/15/2016 04:21 [facility] COMPARISON: CHEST SINGLE AP, December 14, 2016, 12:53. INDICATIONS : Shortness of breath. MEDICAL HISTORY : Cardiovascular disease. Gastroesophageal reflux disease. Hypertension. SURGICAL HISTORY : Inguinal hernia repair. ENCOUNTER: Subsequent ACUITY: 2 weeks PAIN SCORE: 0/10 LOCATION: Bilateral chest FINDINGS: A single view of the chest demonstrates the right-sided chest tube and right IJ central line are both in good position. There is some continued consolidation left lower lobe and right lung base slightly worse on the previous study. The lung volumes are smaller. ET tube and NG tube have been removed. T he cardiomediastinal contours are unremarkable. Osseous structures are intact. CONCLUSION: More consolidation in the left medial lower lobe and throughout the right lung since the previous day 's film. Talat Sheikh MD on December 15, 2016 at 5:51 Board Certified Radiologist. This report was verified electronically.
[2016-12-15] MEDS ORDERED: PANTOPRAZOLE SODIUM 40 MG VIAL IV PUSH SCH (06:00)
[2016-12-15] MEDS: LEVOTHYROXINE SODIUM 50 MCG TAB PO SCH (06:13)
[2016-12-15] MEDS: PANTOPRAZOLE SOD 40 MG DELAYED RELEASE TAB PO SCH (06:13)
[2016-12-15] MEDS: guaiFENesin E.R. 600 MG TAB PO SCH ×2 (08:20→21:29)
[2016-12-15] MEDS: ASPIRIN 81 MG CHEW TAB PO SCH (08:20)
[2016-12-15] MEDS: MULTIVITAMIN TAB PO SCH (08:20)
[2016-12-15] MEDS: PARoxetine HCL 20 MG TAB PO SCH (08:20)
[2016-12-15] MEDS: SODIUM CHLORIDE 0.9% FLUSH 10 ML FLUSH IV FLUSH SCH ×2 (08:21→21:29)
[2016-12-15] MEDS ORDERED: POTASSIUM CHLORIDE 10 MEQ CONTROLLED RELEASE TAB PO ONE (08:45)
[2016-12-15] MEDS ORDERED: BISACODYL 10 MG SUPP RECTAL PRN (08:45)
[2016-12-15] MEDS ORDERED: FUROSEMIDE 20 MG/2 ML VIAL IV PUSH ONE (08:45)
[2016-12-15] MEDS ORDERED: SOD PHOSPHATE/SOD BIPHOSPHATE (ADULT) ENEMA 133ML RECTAL PRN (08:45)
[2016-12-15] MEDS ORDERED: GLUCAGON 1 MG/ML VIAL OTHER PRN (08:45)
[2016-12-15] MEDS ORDERED: DEXTROSE 50% IN WATER 50 ML VIAL(D50) IV PRN (08:45)
[2016-12-15] MEDS: MULTIVITAMINS/MINERALS THERAPEUTIC TAB PO SCH (09:00)
[2016-12-15] MEDS: METOCLOPRAMIDE HCL 10 MG/2 ML VIAL IV SCH ×3 (09:11→21:29)
[2016-12-15] MEDS: MAGNESIUM HYDROXIDE SUSP 30 ML CUP PO SCH (09:12)
[2016-12-15] MEDS: INSULIN ASPART SUPPLEMENTAL SCALE SQ SCH ×4 (09:18→21:28)
--- NOTE | 2016-12-15 11:12 | PD.CAR.PN ---
CVT Progress Note CVT: POD #: 1 Subjective/Hospital Course: 81/ male HX of 4 + AI, moderate MR, Echo showed decrease in EF at 50% mild increase in diastolic dimension, asymptomatic cath revealed no evidence of CAD, here electively for Minimally Invasive AVR PMH: anemia , anxiety, mild cognitive disorder, gastritis , HTN, hypothyroidism , prostate CA surgery: Mini AVR trifecta tissue valve 12/14/16 extubated post surgery, crystalloid 2500cc, cell saver 500cc, EBL 700cc, pump time 135min 12/15 up in chair, on nasal cannula chest tube drained 378cc/ 12 hrs / no air leak + 4 kg/ gentle diuresis / hold on starting BB, amiodarone/ HR 60 no pressors, weaned off insulin gtt cxr shows some atelectasis left lower lobe aggressive pulm toileting, ok to transfer to stepdown unit Objective: GENERAL: SKIN: Warm and dry. dressing in place right upper chest wall, + v wire, chest tube HEAD: Normocephalic. EYES: No scleral icterus. No injection or drainage. NECK: Supple, trachea midline. No JVD or lymphadenopathy. CARDIOVASCULAR: Regular rate and rhythm without murmurs, gallops, or rubs. 1- 2sm RESPIRATORY: Breath sounds equal bilaterally. No accessory muscle use. few bibasilar crackles GASTROINTESTINAL: Abdomen soft, non-tender, nondistended. MUSCULOSKELETAL: No cyanosis, or edema. BACK: Nontender without obvious deformity. No CVA tenderness. Vital Signs Date Time Temp Pulse Resp B/P Pulse Ox O2 Delivery O2 Flow Rate FiO2 12/15/16 09:03 93 Nasal Cannula 2.00 12/15/16 08:02 98 Nasal Cannula 3.00 12/15/16 08:02 61 12/15/16 07:20 98.1 61 18 120/60 94 108/70 12/15/16 06:51 18 12/15/16 04:00 94 Nasal Cannula 3.00 12/15/16 04:00 57 12/15/16 04:00 97.7 58 18 102/68 94 111/52 12/15/16 00:00 95 Nasal Cannula 3.00 12/15/16 00:00 97.7 48 20 118/68 95 134/61 12/15/16 00:00 59 12/14/16 22:29 99 Nasal Cannula 3.00 12/14/16 22:20 97.7 12/14/16 20:00 97.7 48 20 130/71 98 133/66 12/14/16 20:00 99 Nasal Cannula 3.00 12/14/16 20:00 48 12/14/16 19:30 49 12/14/16 19:26 98.6 12/14/16 16:00 96 Nasal Cannula 3.00 12/14/16 16:00 47 12/14/16 15:51 98.6 12/14/16 15:05 97.8 47 14 121/76 97 141/72 12/14/16 14:35 96 Nasal Cannula 4.00 12/14/16 14:35 96 Nasal Cannula 4 12/14/16 14:10 40 12/14/16 14:10 97 40 12/14/16 13:45 50 12/14/16 13:05 98.6 12/14/16 13:00 96 50 12/14/16 12:50 97.8 46 12 94/53 97 108/51 Labs: Laboratory Tests Test 12/15/16 04:45 White Blood Count 15.0 TH/MM3 (4.0-11.0) Red Blood Count 2.84 MIL/MM3 (4.50-5.90) Hemoglobin 8.7 GM/DL (13.0-17.0) Hematocrit 26.2 % (39.0-51.0) Mean Corpuscular Volume 92.0 FL (80.0-100.0) Mean Corpuscular Hemoglobin 30.4 PG (27.0-34.0) Mean Corpuscular Hemoglobin 33.1 % Concent (32.0-36.0) Red Cell Distribution Width 14.1 % (11.6-17.2) Platelet Count 116 TH/MM3 (150-450) Mean Platelet Volume 8.2 FL (7.0-11.0) Sodium Level 139 MEQ/L (136-145) Potassium Level 3.9 MEQ/L (3.5-5.1) Chloride Level 106 MEQ/L (98-107) Carbon Dioxide Level 27.7 MEQ/L (21.0-32.0) Anion Gap 5 MEQ/L (5-15) Blood Urea Nitrogen 16 MG/DL (7-18) Creatinine 0.98 MG/DL (0.60-1.30) Estimat Glomerular Filtration 73 ML/MIN (>89) Rate Random Glucose 51 MG/DL (74-106) Calcium Level 8.4 MG/DL (8.5-10.1) Magnesium Level 1.9 MG/DL (1.5-2.5) Result Diagram: 12/15/1644412/15/16444 Telemetry: SR (1) Severe aortic insufficiency (2) S/P AVR (aortic valve replacement) Plan: ASA, hold any BB for now , HR 60 pulm toileting nebs, ezpap acapella OOB, ambulate leave chest tube in gentle diuresis (3) Hypothyroidism Plan: on home meds (4) Anxiety and depression (5) Blood loss anemia Plan: stable at 8.7/ f/u lab in Gloria Araiza Dec 15, 2016 11:12
[2016-12-15] MEDS ORDERED: diphenhydrAMINE HCL 25 MG CAP PO PRN (16:30)
[2016-12-15] MEDS: TERAZOSIN HCL 1 MG CAP PO SCH (21:29)
[2016-12-15] MEDS: SENNOSIDES 8.6 MG TAB PO SCH (21:30)
[2016-12-15] MEDS: DOCUSATE SODIUM 100 MG CAP PO SCH (21:30)
--- NOTE | 2016-12-15 22:00 | EKG ---
Date Performed: 12/15/2016 Time Performed: 04:37:56 PTAGE: 81 years EKG: Sinus rhythm LVH with secondary repolarization abnormality Extensive ST-T changes may be due to hypertrophy and/o r ischemia Since previous tracing, no significant change noted Abnormal ECG PREVIOUS TRACING : 11/30/2016 10.56 DOCTOR: Davy Abad Interpretating Date/Time 12/15/2016 21:57:39
[2016-12-16] VITALS (29 sets, daily range): BP systolic 102–134; BP diastolic 76–80; PULSE 62–83; RESP 16–22; TEMP 98.6–99.7; O2SAT 85–96
[2016-12-16] MEDS: RESP: ALBUTEROL 2.5 MG/IPRATROPIUM 0.5 MG NEB (SCH) NEB ×4 (03:33→18:56)
[2016-12-16] MEDS: PANTOPRAZOLE SOD 40 MG DELAYED RELEASE TAB PO SCH (04:39)
[2016-12-16] MEDS: METOCLOPRAMIDE HCL 10 MG/2 ML VIAL IV SCH (04:39)
[2016-12-16 05:02] LABS: AUTOMATED NEUTROPHIL # 11.8 TH/MM3 (1.8-7.7); BASOPHIL % 0.2 % (0.0-2.0); EOSINOPHIL % 0.1 % (0.0-4.0); HEMATOCRIT 23.5 % (39.0-51.0); LYMPH % 6.5 % (9.0-44.0); LYMPHOCYTE # 0.9 TH/MM3 (1.0-4.8); MEAN CELL VOLUME 92.3 FL (80.0-100.0); MEAN CORPUSCULAR HGB CONC 33.6 % (32.0-36.0); NEUT % 86.2 % (16.0-70.0); PLATELET COUNT 95 TH/MM3 (150-450); RED BLOOD COUNT 2.55 MIL/MM3 (4.50-5.90); RED CELL DISTRIBUTION WIDTH 14.5 % (11.6-17.2); WHITE BLOOD COUNT 13.7 TH/MM3 (4.0-11.0)
[2016-12-16 05:04] LABS: HEMO FLAGS AUTO DIFF
[2016-12-16 05:14] LABS: MAGNESIUM 2.1 MG/DL (1.5-2.5); POTASSIUM 4.5 MEQ/L (3.5-5.1)
[2016-12-16 05:33] LABS: PLATELET ESTIMATE SMEAR LOW (NORMAL); PLATELET MORPHOLOGY NORMAL (NORMAL)
[2016-12-16 05:34] LABS: SCAN/DIFF AUTO DIFF CONFIRMED
[2016-12-16] MEDS: INSULIN ASPART SUPPLEMENTAL SCALE SQ SCH ×5 (06:00→22:26)
[2016-12-16] MEDS: LEVOTHYROXINE SODIUM 50 MCG TAB PO SCH (06:52)
[2016-12-16] MEDS: MULTIVITAMIN TAB PO SCH (09:00)
[2016-12-16] MEDS: ASPIRIN 81 MG CHEW TAB PO SCH (09:00)
[2016-12-16] MEDS: SODIUM CHLORIDE 0.9% FLUSH 10 ML FLUSH IV FLUSH SCH ×2 (09:00→22:24)
[2016-12-16] MEDS: DOCUSATE SODIUM 100 MG CAP PO SCH ×2 (09:19→22:23)
[2016-12-16] MEDS: MULTIVITAMINS/MINERALS THERAPEUTIC TAB PO SCH (09:19)
[2016-12-16] MEDS: MAGNESIUM HYDROXIDE SUSP 30 ML CUP PO SCH (09:19)
[2016-12-16] MEDS: POLYETHYLENE GLYCOL 17 GM PKG PO SCH (09:19)
[2016-12-16] MEDS: guaiFENesin E.R. 600 MG TAB PO SCH ×2 (09:20→22:23)
[2016-12-16] MEDS: PARoxetine HCL 20 MG TAB PO SCH (09:20)
--- NOTE | 2016-12-16 10:41 | PD.CAR.PN ---
CVT Progress Note CVT: POD #: 2 Subjective/Hospital Course: 81/ male HX of 4 + AI, moderate MR, Echo showed decrease in EF at 50% mild increase in diastolic dimension, asymptomatic cath revealed no evidence of CAD, here electively for Minimally Invasive AVR PMH: anemia , anxiety, mild cognitive disorder, gastritis , HTN, hypothyroidism , prostate CA surgery: Mini AVR trifecta tissue valve 12/14/16 extubated post surgery, crystalloid 2500cc, cell saver 500cc, EBL 700cc, pump time 135min 12/15 up in chair, on nasal cannula chest tube drained 378cc/ 12 hrs / no air leak + 4 kg/ gentle diuresis / hold on starting BB, amiodarone/ HR 60 no pressors, weaned off insulin gtt cxr shows some atelectasis left lower lobe aggressive pulm toileting, ok to transfer to stepdown unit 12/16 on nasal cannula feels fair chest tube drained 40cc/ 12 hrs v wire and chest tube removed without difficulty HGB 7.9/ start on ferrous sulfate/ recheck HGB in am ambulate/ CXR in am Objective: GENERAL: SKIN: Warm and dry.incision intact and well approximated right upper chest wall HEAD: Normocephalic. EYES: No scleral icterus. No injection or drainage. NECK: Supple, trachea midline. No JVD or lymphadenopathy. CARDIOVASCULAR: Regular rate and rhythm without murmurs, gallops, or rubs. RESPIRATORY: diminished right lower lobe . No accessory muscle use. GASTROINTESTINAL: Abdomen soft, non-tender, nondistended. MUSCULOSKELETAL: No cyanosis, or edema. BACK: Nontender without obvious deformity. No CVA tenderness. Vital Signs Date Time Temp Pulse Resp B/P Pulse Ox O2 Delivery O2 Flow Rate FiO2 12/16/16 09:18 96 Nasal Cannula 2.00 12/16/16 07:00 78 12/16/16 07:00 98.6 72 17 116/77 96 12/16/16 06:00 73 12/16/16 05:00 76 12/16/16 04:07 77 12/16/16 04:06 96 Nasal Cannula 3.00 12/16/16 03:00 68 12/16/16 02:00 68 12/16/16 01:00 69 12/16/16 00:00 94 Nasal Cannula 3.00 12/16/16 00:00 98.7 68 16 131/80 94 12/16/16 00:00 68 12/15/16 23:00 73 12/15/16 22:00 71 12/15/16 21:00 67 12/15/16 20:00 70 12/15/16 20:00 98 Nasal Cannula 3.00 12/15/16 20:00 98.9 63 20 144/92 98 12/15/16 19:00 63 12/15/16 18:02 66 12/15/16 17:00 64 12/15/16 16:39 94 Nasal Cannula 3.00 12/15/16 16:00 66 12/15/16 15:39 97.9 61 17 118/72 94 12/15/16 15:00 61 12/15/16 14:00 66 12/15/16 13:40 97.9 68 16 122/81 96 12/15/16 12:39 97 Nasal Cannula 3.00 12/15/16 12:39 63 12/15/16 11:01 98.3 63 18 98/57 94 Arterial Line Labs: Laboratory Tests Test 12/16/16 04:25 White Blood Count 13.7 TH/MM3 (4.0-11.0) Red Blood Count 2.55 MIL/MM3 (4.50-5.90) Hemoglobin 7.9 GM/DL (13.0-17.0) Hematocrit 23.5 % (39.0-51.0) Mean Corpuscular Volume 92.3 FL (80.0-100.0) Mean Corpuscular Hemoglobin 31.0 PG (27.0-34.0) Mean Corpuscular Hemoglobin 33.6 % Concent (32.0-36.0) Red Cell Distribution Width 14.5 % (11.6-17.2) Platelet Count 95 TH/MM3 (150-450) Mean Platelet Volume 9.1 FL (7.0-11.0) Neutrophils (%) (Auto) 86.2 % (16.0-70.0) Lymphocytes (%) (Auto) 6.5 % (9.0-44.0) Monocytes (%) (Auto) 7.0 % (0.0-8.0) Eosinophils (%) (Auto) 0.1 % (0.0-4.0) Basophils (%) (Auto) 0.2 % (0.0-2.0) Neutrophils # (Auto) 11.8 TH/MM3 (1.8-7.7) Lymphocytes # (Auto) 0.9 TH/MM3 (1.0-4.8) Monocytes # (Auto) 1.0 TH/MM3 (0-0.9) Eosinophils # (Auto) 0.0 TH/MM3 (0-0.4) Basophils # (Auto) 0.0 TH/MM3 (0-0.2) CBC Comment AUTO DIFF Differential Comment AUTO DIFF CONFIRMED Platelet Estimate LOW (NORMAL) Platelet Morphology Comment NORMAL (NORMAL) Sodium Level 134 MEQ/L (136-145) Potassium Level 4.5 MEQ/L (3.5-5.1) Chloride Level 99 MEQ/L (98-107) Carbon Dioxide Level 29.0 MEQ/L (21.0-32.0) Anion Gap 6 MEQ/L (5-15) Blood Urea Nitrogen 17 MG/DL (7-18) Creatinine 1.01 MG/DL (0.60-1.30) Estimat Glomerular Filtration 71 ML/MIN (>89) Rate Random Glucose 143 MG/DL (74-106) Calcium Level 7.8 MG/DL (8.5-10.1) Magnesium Level 2.1 MG/DL (1.5-2.5) Result Diagram: 12/16/1642412/16/16424 Telemetry: NSR (1) Severe aortic insufficiency (2) S/P AVR (aortic valve replacement) Plan: ASA, hold any BB _72 for now , HR 60 pulm toileting nebs, ezpap acapella OOB, ambulate (3) Hypothyroidism Plan: on home meds (4) Anxiety and depression (5) Blood loss anemia Plan: stable at 8.7> 7.9 f/u lab in am start ferrous sulfate Gloria Dodd Dec 16, 2016 10:41
--- NOTE | 2016-12-16 11:33 | HHI.FF ---
Face to Face Verification Diagnosis: (1) Severe aortic insufficiency (2) S/P AVR (aortic valve replacement) (3) Blood loss anemia (4) Hypothyroidism Home Health Nursing Order: Wound care and dressing changes Nursing assessment with vital signs Instructions: Incentive spirometry Q1 hr x 10, while awake, also use acapella device hourly whole awake chest wall Precautions: NO pushing or pulling, ( pt must use chest pillow to support chest with all activities and with coughing Daily incision care: ok to shower daily, no tub bath. Wash all incisions with liquid dial soap, clean wash cloth to each site, rinse and pat dry. Observe for any signs of infection, such as drainage which is dark yellow, omnk, green or foul smelling. Immediately report to the surgeon any drainage from the chest incision, or legs, and for any abnormal drainage from the chest tube sites. Notify surgeon if any temp >101.5 degrees F. When specialty dressing removed/ or if you do not have one, continue to shower daily as above, then rinse and pat incision dry and paint with betadine daily x 5 days. Allow steri strips to fall off if you have any. Avoid lotions, creams, salves, oils, etc. for the first month For Dr. Young patients , please obtain CBC, BMP, PA & Lat CXR in 2 weeks, results to Dr. Young ( prescription will be given) ( ) (Tele: [phone]) , Valve replacement pts will need 2decho in 2 weeks with results to Dr. Young . Please obtain 2 d echo at your furniture associate office if possible F/U appointment: as per DC instructions: PCP in 2 weeks, CV surgeon 2 weeks, [place] 3-4 weeks For any questions regarding incisions/ dressing / meds / post op care or above Symptoms, Wednesday 8am-5pm Heart & Vascular Surgery Office ( Dr. Polanco & Dr. Young), After Hours / Nights (5pm -8am) Weekends and Holidays Please call [facility] Cardiac Inter[facility] Care Unit ([facility]) Charge Nurse Heart and Vascular Surgery patients *Special attention to sternal dressing Mandatory frequency Assess and evaluation, 4 days in a row The next week 3X week 2 times a week for 4 weeks 1 time a week for 5 weeks Schedule Heart and Vascular patients for full 60 day certification period Initial visit Review Open Heart Surgery Discharge Instructions (Sternal precautions, Activity, Elastic hose, Incision care, Driving, Incentive spirometry, Smoking, [place], Work and other) Need Betadine to paint incision Medication reconciliation Importance of follow up care/ check on appointments Make calendar record temperature daily When to call [facility] Home nurse, review instructions, phone list Incentive Spirometry, demonstration Visit 1- Begin discharge instruction for patient family and/ or caregiver using teach back method- Signs and symptoms of infection Disease characteristics Medicines and side effects Foods and nutrition/ appetite Infection control/ hand washing/ hygiene Visit 2- Continue teaching Discharge instructions- include additional information on smoking cessation , sternal dressing (sternal vac) Visit 3- Continue teaching- Cough and deep breathing, incision monitoring. Choose my plate Visit 4- Continue teaching- Discuss limitations Discuss how they are feeling Discuss progress toward goals Remaining visits- continue teaching and monitoring I have seen patient Jac Wilcox on 12/16/16. My clinical findings support the need for the requested home health care services because: Deconditioned w/ increased weakness I certify that my clinical findings support that this patient is homebound because: Post-op weakness Gloria Dodd Dec 16, 2016 11:33
[2016-12-16] MEDS ORDERED: MAGNESIUM SULFATE 1 GM PREMIX 100 ML IV ONE (12:00)
[2016-12-16] MEDS: FERROUS SULFATE 325 MG (65 MG ELEMENTAL IRON) TAB PO SCH ×2 (12:00→17:14)
[2016-12-16] MEDS ORDERED: FUROSEMIDE 20 MG/2 ML VIAL IV PUSH ONE (12:00)
--- NOTE | 2016-12-16 12:18 | PD.OP ---
cc: Barbara Young MD Operative Report Date of Surgery: Dec 14, 2016 Preoperative Diagnosis: (1) Severe aortic insufficiency (2) Diastolic heart failure Postoperative Diagnosis: same Procedure: Minimally invasive AVR with a 21 Trifecta tissue valve, REYES Percutaneous access left femoral artery and vein with Perclose closure of the artery with ultrasound guidance Anesthesia: Dr. Pa Surgeon: Barbara Young Registered Appraiser(s): Qasim Murphy Operation and Findings: The risks, benefits, complications, treatment options, and expected outcomes were discussed with the patient. The possibilities of reaction to medication, pulmonary aspiration, perforation of viscus, bleeding, recurrent infection, the need for additional procedures, failure to diagnose a condition, and creating a complication requiring transfusion or operation were discussed with the patient. The patient concurred with the proposed plan, giving informed consent. The site of surgery properly noted/marked. The patient was taken to Operating Room, identified as Jac Wilcox and the procedure verified as Minimally Invasive Aortic Valve Replacement. A Time Out was held and the above information confirmed. Standard monitoring lines and Luque catheter were placed. General anesthesia was induced. The patient was prepped and draped in a sterile fashion. Percutaneous access of the femoral artery and vein were exposed with ultrasound guidance. The patient was heparinized for cardiopulmonary bypass. The left femoral artery was cannulated with a 17 [employer] arterial cannula after placing to Perclose devices for later closure.. The left femoral vein was cannulated with a 21 [employer] cannula under REYES guidance. A 6 cm right anterior thoracotomy was performed. An Sathya retractor was placed followed by a small chest retractor. The pericardium was opened and a pericardial sling was created using interrupted 0 silk sutures. A small 1 cm incision was made at the 6th intercostal space and an LV vent and pericardial suction were placed through this access port. The aorta was dissected posteriorly for crossclamp placement. Antegrade Custodiol cardioplegia were employed. Additionally, hand- held coronary cardioplegia cannula was used during the procedure. The patient was placed on cardiopulmonary bypass. An aortic cross-clamp was applied and the heart was arrested using cold blood cardioplegia delivered through a 14F catheter. The aorta was opened above the sinotubular ridge and the aortic valve was exposed. The right and left coronary was directly cannulated in addition and cardioplegia was administered. On opening the aorta, the valve appeared minimally calcified. The valve was resected as well as all annular calcification, sized for a 21 Trifecta tissue valve which was placed with 2-0 pledgeted Tycron valve sutures. The valve seated well. The aorta was closed with running 4-0 Prolene suture. The patient systemically Re warmed and received a hotshot dose of warm blood cardioplegia. The heart was vigorously deaired with a clamp on. The clamp was removed, deairing continued. The patient was easily weaned from cardiopulmonary bypass. Decannulation was carried out without incident and Perclose sutures secuired for the artery. As horizontal mattress skin stitch was used to close the vein with manual compression. . Protamine was given. There was no adverse reaction. Intraoperative REYES following the procedure showed a well-seated aortic valve with no perivalvular leak and preserved ventricular function. Wound was checked for hemostasis was obtained using electrocautery. A 32 F chest tube was placed through the access port and secured. The fascia and pectoralis were closed with 0 Vicryl. The subcutaneous tissue was closed using a running 3-0 Monocryl suture. The skin was closed with 4-0 Monocryl. The groin was closed in 2 layers. Sterile dressings were placed. At the end of the operation, all sponge, instruments, and needle counts were correct. The patient was transferred to the CVICU in stable condition. Barbara Young MD Dec 16, 2016 12:18
[2016-12-16] MEDS ORDERED: POTASSIUM CHLORIDE 8 MEQ CONTROLLED RELEASE TAB PO ONE (12:30)
[2016-12-16 16:09] LABS: BLOOD, URINE LARGE (NEG); COMMENT (UR) CULT NOT INDICATED; CULTURE IF INDICATED CULT NOT INDICATED; GLUCOSE,URINE NEG (NEG); KETONE, URINE NEG (NEG); NITRITE,URINE NEG (NEG); PH, URINE 6.5 (5.0-8.5); URINE COLOR LIGHT-YELLOW (YELLW/STRAW)
[2016-12-16] MEDS: SENNOSIDES 8.6 MG TAB PO SCH (21:00)
[2016-12-16] MEDS: TERAZOSIN HCL 1 MG CAP PO SCH (22:23)
[2016-12-17] VITALS (17 sets, daily range): BP systolic 109–144; BP diastolic 77–91; PULSE 57–86; RESP 16–18; TEMP 98–98.9; O2SAT 95–98
--- NOTE | 2016-12-17 05:58 | RADRPT ---
EXAM DATE/TIME: 12/17/2016 04:26 [place] COMPARISON: CHEST SINGLE AP, December 15, 2016, 4:21. INDICATIONS : Shortness of breath, possible pulmonary disease. MEDICAL HISTORY : Cardiovascular disease. Gastroesophageal reflux disease. Hypertension. SURGICAL HISTORY : Inguinal hernia repair. ENCOUNTER: Subsequent ACUITY: 2 weeks PAIN SCORE: 0/10 LOCATION: Bilateral chest FINDINGS: A single view of the chest demonstrates right IJ central venous catheter in good position. Right [place] diaphragm slightly elevated with a small right pleural effusion. Right-sided chest tube has been yonathan vangie. Aorta remains tortuous. Left lung is relatively clear.. The cardiomediastinal contours are unre markable. Osseous structures are intact. CONCLUSION: Minimal consolidation right lower lobe. Central line in good position. Very tortuous aorta. Talat Sheikh MD on December 17, 2016 at 5:56 Board Certified Radiologist. This report was verified electronically.
[2016-12-17] MEDS: INSULIN ASPART SUPPLEMENTAL SCALE SQ SCH ×2 (06:09→12:28)
[2016-12-17 06:13] LABS: BICARBONATE 28.4 MEQ/L (21.0-32.0); POTASSIUM 4.1 MEQ/L (3.5-5.1)
[2016-12-17] MEDS: PANTOPRAZOLE SOD 40 MG DELAYED RELEASE TAB PO SCH (06:26)
[2016-12-17] MEDS: LEVOTHYROXINE SODIUM 50 MCG TAB PO SCH (06:26)
[2016-12-17] MEDS: RESP: ALBUTEROL 2.5 MG/IPRATROPIUM 0.5 MG NEB (SCH) NEB (07:32)
[2016-12-17 08:21] LABS: MEAN CELL VOLUME 92.9 FL (80.0-100.0); MEAN CORPUSCULAR HEMOGLOBIN 31.4 PG (27.0-34.0); MEAN CORPUSCULAR HGB CONC 33.8 % (32.0-36.0); PLATELET COUNT 96 TH/MM3 (150-450); RED BLOOD COUNT 2.37 MIL/MM3 (4.50-5.90); WHITE BLOOD COUNT 9.6 TH/MM3 (4.0-11.0)
[2016-12-17 08:23] LABS: REVIEW FLAG FINAL
[2016-12-17] MEDS: DOCUSATE SODIUM 100 MG CAP PO SCH (08:32)
[2016-12-17] MEDS: PARoxetine HCL 20 MG TAB PO SCH (08:33)
[2016-12-17] MEDS: guaiFENesin E.R. 600 MG TAB PO SCH (08:33)
[2016-12-17] MEDS: MULTIVITAMINS/MINERALS THERAPEUTIC TAB PO SCH (08:33)
[2016-12-17] MEDS: ASPIRIN 81 MG CHEW TAB PO SCH (08:33)
[2016-12-17] MEDS: MAGNESIUM HYDROXIDE SUSP 30 ML CUP PO SCH (08:34)
[2016-12-17] MEDS: POLYETHYLENE GLYCOL 17 GM PKG PO SCH (08:34)
[2016-12-17] MEDS: SODIUM CHLORIDE 0.9% FLUSH 10 ML FLUSH IV FLUSH SCH (08:45)
[2016-12-17] MEDS ORDERED: POTASSIUM CHLORIDE 10 MEQ CONTROLLED RELEASE TAB PO ONE (09:00)
[2016-12-17] MEDS ORDERED: BISACODYL 10 MG SUPP RECTAL ONE (09:00)
[2016-12-17] MEDS ORDERED: METOPROLOL TARTRATE 25 MG TAB PO SCH (09:00)
[2016-12-17] MEDS ORDERED: FUROSEMIDE 20 MG/2 ML VIAL IV PUSH ONE (09:00)
[2016-12-17] MEDS: FERROUS SULFATE 325 MG (65 MG ELEMENTAL IRON) TAB PO SCH (12:25)
[2016-12-17] MEDS ORDERED: METO25TA3 PO (14:22)
[2016-12-17] MEDS ORDERED: FERR325T20 PO (14:22)
[2016-12-17] MEDS ORDERED: DOCU1CAP39 PO (14:22)
[2016-12-17] MEDS ORDERED: ASPI81CH25 PO (14:22)
--- NOTE | 2016-12-17 14:38 | HHI.DS ---
Discharge Summary Admission Date Dec 14, 2016 at 05:39 Discharge Date: Dec 17, 2016 Admitting Diagnosis severe aortic insufficiency diastolic heart failure (1) Diastolic heart failure Diagnosis: Secondary (2) Severe aortic insufficiency Diagnosis: Principal (3) S/P AVR (aortic valve replacement) Diagnosis: Secondary (4) Blood loss anemia Diagnosis: Secondary Procedures Minimally invasive AVR with a 21 Trifecta tissue valve, REYES 12/16 Percutaneous access left femoral artery and vein with Perclose closure of the artery Brief History 81/ male HX of 4 + AI, moderate MR, Echo showed decrease in EF at 50% mild increase in diastolic dimension, asymptomatic cath revealed no evidence of CAD, here electively for Minimally Invasive AVR PMH: anemia , anxiety, mild cognitive disorder, gastritis , HTN, hypothyroidism , prostate CA surgery: Mini AVR trifecta tissue valve 12/14/16 extubated post surgery, crystalloid 2500cc, cell saver 500cc, EBL 700cc, pump time 135min CBC/BMP: 12/17/16 0530 12/17/16 0530 Significant Findings Laboratory Tests Test 12/15/16 12/16/16 12/16/16 12/17/16 04:45 04:25 15:33 05:30 White Blood Count 15.0 TH/MM3 13.7 TH/MM3 (4.0-11.0) (4.0-11.0) Red Blood Count 2.84 MIL/MM3 2.55 MIL/MM3 2.37 MIL/MM3 (4.50-5.90) (4.50-5.90) (4.50-5.90) Hemoglobin 8.7 GM/DL 7.9 GM/DL 7.4 GM/DL (13.0-17.0) (13.0-17.0) (13.0-17.0) Hematocrit 26.2 % 23.5 % 22.0 % (39.0-51.0) (39.0-51.0) (39.0-51.0) Platelet Count 116 TH/MM3 95 TH/MM3 96 TH/MM3 (150-450) (150-450) (150-450) Estimat Glomerular Filtration 73 ML/MIN (>89) 71 ML/MIN (>89) Rate Random Glucose 51 MG/DL 143 MG/DL (74-106) (74-106) Calcium Level 8.4 MG/DL 7.8 MG/DL 7.9 MG/DL (8.5-10.1) (8.5-10.1) (8.5-10.1) Neutrophils (%) (Auto) 86.2 % (16.0-70.0) Lymphocytes (%) (Auto) 6.5 % (9.0-44.0) Neutrophils # (Auto) 11.8 TH/MM3 (1.8-7.7) Lymphocytes # (Auto) 0.9 TH/MM3 (1.0-4.8) Monocytes # (Auto) 1.0 TH/MM3 (0-0.9) Platelet Estimate LOW (NORMAL) Sodium Level 134 MEQ/L 134 MEQ/L (136-145) (136-145) Urine Occult Blood LARGE (NEG) Urine RBC 145 /hpf (0-3) Urine WBC 6 /hpf (0-5) Chloride Level 97 MEQ/L (98-107) Imaging Last Impressions Chest X-Ray 12/17/16 0600 Signed Impressions: Service Date/Time: December 04:26 - CONCLUSION: Minimal consolidation right lower lobe. Central line in good position. Very tortuous aorta. Talat Sheikh MD PE at Discharge GENERAL: SKIN: Warm and dry. incision intact and well approximated to right upper chest wall left groin site intact / suture removed HEAD: Normocephalic. EYES: No scleral icterus. No injection or drainage. NECK: Supple, trachea midline. No JVD or lymphadenopathy. CARDIOVASCULAR: Regular rate and rhythm without murmurs, gallops, or rubs. RESPIRATORY: Breath sounds equal bilaterally. No accessory muscle use. GASTROINTESTINAL: Abdomen soft, non-tender, nondistended. MUSCULOSKELETAL: No cyanosis, or edema. BACK: Nontender without obvious deformity. No CVA tenderness. Hospital Course surgery: Mini AVR trifecta tissue valve 12/14/16 extubated post surgery, crystalloid 2500cc, cell saver 500cc, EBL 700cc, pump time 135min 12/15 up in chair, on nasal cannula chest tube drained 378cc/ 12 hrs / no air leak + 4 kg/ gentle diuresis / hold on starting BB, amiodarone/ HR 60 no pressors, weaned off insulin gtt cxr shows some atelectasis left lower lobe aggressive pulm toileting, [facility] on nasal cannula feels fair chest tube drained 40cc/ 12 hrs v wire and chest tube removed without difficulty HGB 7.9/ start on ferrous sulfate/ recheck HGB in am ambulate/ CXR in am 6/8 pt doing well, stable for dc home today suture removed from left groin, site intact and well approximated , some mild ecchymosis on room air started on low dose BB / tolerating dose Pt Condition on Discharge: Good Discharge Disposition: Disch w/ Home Health Serv Discharge Instructions DIET: Follow Instructions for: Heart Healthy Diet Activities you can perform: Shower Only-No Bath Activities to avoid: Lifting/Bending, Strenuous Activity, Driving Additional Activity Instructio: no lifting >8lbs or gallon of milk Follow up Referrals: Appointment for Follow Up with Barbara Young MD Appointment for Follow Up with Keivn Osuna MD PCP Follow-up with Fernie Agrawal MD New Orders: 2D ECHO - 2 Weeks BASIC METABOLIC PROF - 2 Weeks CBC NO DIFF - 2 Weeks X-RAY CHEST PA & LAT - 2 Weeks New Medications: Aspirin (Aspirin Low Strength) 81 Mg Chew 81 MG PO DAILY Blood Clot Prevention #100 Ref 2 EA Docusate Sodium (Dok) 100 Mg Cap 100 MG PO BID Constipation #60 CAP Ferrous Sulfate (Ferosul) 325 Mg Tablet 325 MG PO BID@12,17 anemia #60 TAB Metoprolol Tartrate (Metoprolol Tartrate) 25 Mg Tab 12.5 MG PO Q12HR hold SBP<100 HR<60 Blood Pressure Management #60 TAB Continued Medications: Guaifenesin/Pseudoephedrne HCl (Mucinex D ER 600-60 mg Tablet) 1 Each Tab.er.12h 600 MG PO BID Chest Congestion/Cough Levothyroxine (Levothyroxine) 50 Mcg Tab 50 MCG PO DAILY Thyroid #30 Ref 0 TAB Magnesium (Magnesium) 250 Mg Tab 250 MG PO DAILY Multiple Vitamin (Multiple Vitamin) 1 Tab 1 TAB PO DAILY Nutritional Supplement Ref 0 TAB Paroxetine (Paroxetine) 10 Mg Tab 10 MG PO DAILY #30 Ref 0 TAB Terazosin (Terazosin) 2 Mg Cap 2 MG PO HS #30 Ref 0 CAP Gloria Dodd Dec 17, 2016 14:38
[2016-12-17] MEDS ORDERED: NORC5TAB PO (15:15)
== END 2016-12-17 17:00 | disposition home or self-care (01) | DRG 220 ==
LOC: HSDI 12-14 05:39 → HCVR 12-14 12:50 → HCIN 12-15 13:38
PROVIDERS: ADMIT Thoracic Surgery (Cardiothoracic Vascular Surgery); ATTEND Thoracic Surgery (Cardiothoracic Vascular Surgery)
PROC: B24BZZ4 Ultrasonography of Heart with Aorta, Transesophageal (ICD-10-PCS; 2016-12-14)
PROC: 02RF08Z Replacement of Aortic Valve with Zooplastic Tissue, Open Approach (ICD-10-PCS; principal; 2016-12-14 07:17)
PROC: 5A1221Z Performance of Cardiac Output, Continuous (ICD-10-PCS; 2016-12-14 07:17)
DX: I08.0 Rheumatic disorders of both mitral and aortic valves (principal); I50.30 Unspecified diastolic (congestive) heart failure; I11.0 Hypertensive heart disease with heart failure; D50.0 Iron deficiency anemia secondary to blood loss (chronic); E03.9 Hypothyroidism, unspecified; F41.9 Anxiety disorder, unspecified; N40.0 Benign prostatic hyperplasia without lower urinary tract symptoms; K21.9 Gastro-esophageal reflux disease without esophagitis; F32.9 Major depressive disorder, single episode, unspecified; Z87.891 Personal history of nicotine dependence; Z85.46 Personal history of malignant neoplasm of prostate
CPT/HCPCS: 36430; 71010; 76937; 80048; 81001; 82948; 83735; 85014; 85025; 85027; 86850; 86900; 86901; 86920; 88305; 88311; 93005; 93318; 94002; 94150; 94640; 94664; 94667; 94668; C9248; J0131; J0171; J0690; J1644; J1815; J1940; J2150; J2250; J2370; J2405; J2720; J2765; J2930; J3010; J3370; J3475; J3480; J7030; J7120; P9016; P9047

== ENCOUNTER 2017-10-02 14:47 | Emergency (ER) | payer MEDICARE ==
[~2017-10-02] VITALS: Ht 162.6 cm; Wt 62.0 kg
[~2017-10-02 14:47] MED LIST changes: +ASPI81CH25 PO; -CALC1TAB87 PO; +DOCU1CAP39 PO; +ESSE250T PO; +FERR325T20 PO; +METO25TA3 PO; -MUCI600T PO; +MUCI60TA9 PO; +NORC5TAB PO
[2017-10-02 15:28] VITALS: BP 140/84; PULSE 55; RESP 20; TEMP 97.6; O2SAT 100
[2017-10-02] MEDS ORDERED: SODIUM CHLORID 0.9% 500 ML INJ 500 ML IV ONE (15:30)
[2017-10-02] MEDS ORDERED: MORPHINE SULFATE 4 MG/ML INJ IV PUSH ONE ×2 (15:30→16:15)
[2017-10-02] MEDS ORDERED: SODIUM CHLORIDE 0.9% FLUSH 10 ML FLUSH IVF PRN (15:30)
[2017-10-02] MEDS ORDERED: ONDANSETRON HCL 4 MG/2 ML VIAL IVP ONE (15:30)
--- NOTE | 2017-10-02 15:31 | PD ---
HPI Chief Complaint: GI Complaint Time Seen by Provider: 15:13 Travel History International Travel<30 days: No Contact w/Intl Traveler<30days: No Traveled to known affect area: No History of Present Illness HPI 82-year-old male presents emergency department complaining of constipation and rectal pain for approximately 2 days. States that he has been straining to have a bowel movements for 2 days and this started his rectal pain. States that he felt a 'ball' come through his anus then felt it go back into his rectum today which is why he is here today. Patient says he has had constipation before. Says he does have some mild nausea without vomiting. Also has some mild diffuse abdominal pain, worse with movement. His appetite has been decreased because of his constipation. His medical history significant for AVR, BPH. Says he has been able to urinate normally. He takes aspirin but no other blood thinners or anticoagulants. PFSH Past Medical History Arthritis: Yes (HANDS/FINGERS.) Asthma: No Autoimmune Disease: No Blood Disorders: No Heart Rhythm Problems: No Cancer: No Cardiovascular Problems: Yes High Cholesterol: No Chemotherapy: No Chest Pain: No Congestive Heart Failure: No COPD: No Cerebrovascular Accident: No Diabetes: No Diminished Hearing: Yes (BILATERAL) Endocrine: No Gastrointestinal Disorders: Yes (GERD, ULCER HX) GERD: No Glaucoma: No Genitourinary: Yes (BPH) Headaches: No Hepatitis: No Hiatal Hernia: Yes Hypertension: Yes Immune Disorder: No Kidney Stones: Yes Musculoskeletal: Yes (ARTHRITIS) Neurologic: No Psychiatric: No Reproductive: No Respiratory: No Migraines: No Myocardial Infarction: No Radiation Therapy: No Renal Failure: No Seizures: No Sickle Cell Disease: No Sleep Apnea: No Thyroid Disease: Yes (on synthroid) Ulcer: No Past Surgical History Abdominal Surgery: Yes (BILATERAL HERNIA REPAIR INGUINAL) AICD: No Appendectomy: No Arteriovenous Shunt: No Cardiac Surgery: No Cholecystectomy: No Ear Surgery: No Endocrine Surgery: No Eye Surgery: Yes (BILATERAL CATARACT REMOVAL) Genitourinary Surgery: Yes (TURP x 2) Gynecologic Surgery: No Insulin Pump: No Joint Replacement: No Oral Surgery: No Pacemaker: No Thoracic Surgery: No Other Surgery: Yes (NASAL POLYPS) Social History Alcohol Use: Yes (1 A DAY) Tobacco Use: No Substance Use: No Allergies-Medications (Allergen,Severity, Reaction): Coded Allergies: No Known Allergies (Verified , 11/30/16) Reported Meds & Prescriptions Reported Meds & Active Scripts Active Fleet Oil Enema (Mineral Oil) 118 Ml Enem 1 Ea RECTAL DIRECTED PRN Docusate Sodium 100 Mg Cap 100 Mg PO BID 10 Days Aspirin Low Strength (Aspirin) 81 Mg Chew 81 Mg PO DAILY Reported Ropinirole 0.25 Mg Tab 0.25 Mg PO HS Calcium 600 with Vitamin D (Calcium Carbonate-Cholecalciferol) 600-400 mg-Unit Tab 1 Tab PO DAILY Paroxetine (Paroxetine HCl) 10 Mg Tab 10 Mg PO DAILY Levothyroxine (Levothyroxine Sodium) 50 Mcg Tab 50 Mcg PO DAILY Review of Systems Except as stated in HPI: all other systems reviewed are Neg Physical Exam Narrative GENERAL: WD, WN in mild distress SKIN: Focused skin assessment warm/dry. HEAD: Atraumatic. Normocephalic. EYES: Pupils equal and round. No scleral icterus. No injection or drainage. ENT: No nasal bleeding or discharge. Mucous membranes pink and moist. NECK: Trachea midline. No JVD. CARDIOVASCULAR: Regular rate and rhythm. No murmur appreciated. RESPIRATORY: No accessory muscle use. Clear to auscultation. Breath sounds equal bilaterally. GASTROINTESTINAL: Abdomen soft, diffusely tender, no masses or organomegaly. No CVA tenderness MUSCULOSKELETAL: No obvious deformities. No clubbing. No cyanosis. No edema. NEUROLOGICAL: Awake and alert. No obvious cranial nerve deficits. Motor grossly within normal limits. Normal speech. PSYCHIATRIC: Appropriate mood and affect; insight and judgment normal. Data Data Last Documented VS Vital Signs Date Time Temp Pulse Resp B/P (MAP) Pulse Ox O2 Delivery O2 Flow Rate FiO2 10/02/17 22:56 10/02/17 22:20 76 18 99 Room Air 10/02/17 19:00 99.6 Orders Orders Complete Blood Count With Diff (10/02/17 15:25) Comprehensive Metabolic Panel (10/02/17 15:25) Lipase (10/02/17 15:25) Prothrombin Time / Inr (Pt) (10/02/17 15:25) Act Partial Throm Time (Ptt) (10/02/17 15:25) Urinalysis - C+S If Indicated (10/02/17 15:25) Ct Abd/Pel W Iv Contrast(Rout) (10/02/17 15:25) Iv Access Insert/Monitor (10/02/17 15:25) Ecg Monitoring (10/02/17 15:25) Oximetry (10/02/17 15:25) NPO (10/02/17 15:25) Morphine Inj (Morphine Inj) (10/02/17 15:30) Ondansetron Inj (Zofran Inj) (10/02/17 15:30) Electrocardiogram (10/02/17 15:25) Magnesium (Mg) (10/02/17 15:25) Troponin I (10/02/17 15:25) Sodium Chloride 0.9% Flush (Ns Flush) (10/02/17 15:30) Sodium Chlorid 0.9% 500 Ml Inj (Ns 500 M (10/02/17 15:30) Morphine Inj (Morphine Inj) (10/02/17 16:15) Iohexol 350 Inj (Omnipaque 350 Inj) (10/02/17 17:49) Fleets Enema (Adult) (Fleets Enema (Adul (10/02/17 18:15) Hydromorphone Pf Inj (Dilaudid Pf Inj) (10/02/17 18:15) Enema (10/02/17 18:31) Ed Discharge Order (10/02/17 22:24) Labs Laboratory Tests Test 10/02/17 15:40 10/02/17 21:27 White Blood Count 13.7 TH/MM3 Red Blood Count 3.90 MIL/MM3 Hemoglobin 12.5 GM/DL Hematocrit 36.4 % Mean Corpuscular Volume 93.3 FL Mean Corpuscular Hemoglobin 32.2 PG Mean Corpuscular Hemoglobin Concent 34.4 % Red Cell Distribution Width 13.5 % Platelet Count 220 TH/MM3 Mean Platelet Volume 8.3 FL Neutrophils (%) (Auto) 87.4 % Lymphocytes (%) (Auto) 6.3 % Monocytes (%) (Auto) 3.8 % Eosinophils (%) (Auto) 1.6 % Basophils (%) (Auto) 0.9 % Neutrophils # (Auto) 11.9 TH/MM3 Lymphocytes # (Auto) 0.9 TH/MM3 Monocytes # (Auto) 0.5 TH/MM3 Eosinophils # (Auto) 0.2 TH/MM3 Basophils # (Auto) 0.1 TH/MM3 CBC Comment DIFF FINAL Differential Comment Prothrombin Time 10.9 SEC Prothromb Time International Ratio 1.1 RATIO Activated Partial Thromboplast Time 26.5 SEC Blood Urea Nitrogen 12 MG/DL Creatinine 1.14 MG/DL Random Glucose 121 MG/DL Total Protein 7.5 GM/DL Albumin 3.9 GM/DL Calcium Level 9.1 MG/DL Magnesium Level 1.6 MG/DL Alkaline Phosphatase 63 U/L Aspartate Amino Transf (AST/SGOT) 28 U/L Alanine Aminotransferase (ALT/SGPT) 21 U/L Total Bilirubin 0.6 MG/DL Sodium Level 128 MEQ/L Potassium Level 4.3 MEQ/L Chloride Level 91 MEQ/L Carbon Dioxide Level 23.5 MEQ/L Anion Gap 14 MEQ/L Estimat Glomerular Filtration Rate 61 ML/MIN Troponin I LESS THAN 0.02 NG/ML Lipase 91 U/L Urine Color YELLOW Urine Turbidity HAZY Urine pH 8.0 Urine Specific [place] 1.015 Urine Protein NEG mg/dL Urine Glucose (UA) NEG mg/dL Urine Ketones 10 mg/dL Urine Occult Blood NEG Urine Nitrite NEG Urine Bilirubin NEG Urine Urobilinogen LESS THAN 2.0 MG/DL Urine Leukocyte Esterase NEG Urine WBC LESS THAN 1 /hpf Urine Amorphous Sediment MOD Urine Bacteria RARE /hpf Microscopic Urinalysis Comment CULT NOT INDICATED MDM Medical Decision Making Medical Screen Exam Complete: Yes Emergency Medical Condition: Yes Differential Diagnosis Impacted stool, rectal prolapse, constipation Narrative Course 82-year-old male presents emergency department complaining of constipation and rectal pain for approximately 2 days. States that he has been straining to have a bowel movements for 2 days and this started his rectal pain. States that he felt a 'ball' come through his anus then felt it go back into his rectum today which is why he is here today. Patient says he has had constipation before. Says he does have some mild nausea without vomiting. Also has some mild diffuse abdominal pain, worse with movement. His appetite has been decreased because of his constipation. His medical history significant for AVR, BPH. Says he has been able to urinate normally. He takes aspirin but no other blood thinners or anticoagulants. EKG shows sinus bradycardia at rate 56 without STEMI changes. nonspecific T wave inversions to Lead I, aVl, V4, V5. This appears similar to EKG in December 2016. CBC & BMP Diagram 10/02/17 15:40 Total Protein 7.5, Albumin 3.9, Calcium Level 9.1, Magnesium Level 1.6, Alkaline Phosphatase 63, Aspartate Amino Transf (AST/SGOT) 28, Alanine Aminotransferase (ALT/SGPT) 21, Total Bilirubin 0.6 A total of 6mg Morphine administered without significant relief of pain. Dilaudid administered for pain, which did reduce his pain. Fleet enema and soap enema was unsuccessful however, upon reevaluation of patient, he was on the toilet. States that he feels much better and would like to go home. Patient says he feels much better and would like to go home. Says he was able to have a bowel movement and feels significantly better. Advised him to use stool softeners and follow-up with primary care physician as soon as possible. Ensure adequate fluid intake and proper nutrition. Plenty of fiber. Patient and state understanding, will comply. Diagnosis Primary Impression: Impacted stool in rectum Additional Impression: Rectal pain Referrals: Colon Rectal Specialist Additional Instructions: Follow-up the colorectal specialists as soon as possible. Take all medications as prescribed. Continue adequate fluid intake and proper nutrition. You may use a stool softener, enemas, or laxatives for your constipation. If your symptoms symptoms persist or worsen return to the emergency department. Scripts Mineral Oil Enema (Fleet Oil Enema) 118 Ml Enem 1 EA RECTAL DIRECTED Y for CONSTIPATION, #1 BOTTLE 0 Refills Prov: Cb Marcelino MD 10/02/17 Docusate Sodium (Docusate Sodium) 100 Mg Cap 100 MG PO BID for Prevent Constipation for 10 Days, #20 CAP 0 Refills Prov: Cb Marcelino MD 10/02/17 Disposition: 01 DISCHARGE HOME Condition: Stable Jodie Sandoval Oct 02, 2017 15:31
[2017-10-02] MEDS ORDERED: CALC1TAB87 PO (15:33)
[2017-10-02] MEDS ORDERED: ROPI0.25 PO (15:33)
[2017-10-02 16:04] LABS: AUTOMATED NEUTROPHIL # 11.9 TH/MM3 (1.8-7.7); BASOPHIL # 0.1 TH/MM3 (0-0.2); BASOPHIL % 0.9 % (0.0-2.0); EOSINOPHIL # 0.2 TH/MM3 (0-0.4); EOSINOPHIL % 1.6 % (0.0-4.0); HEMATOCRIT 36.4 % (39.0-51.0); HEMOGLOBIN 12.5 GM/DL (13.0-17.0); LYMPH % 6.3 % (9.0-44.0); LYMPHOCYTE # 0.9 TH/MM3 (1.0-4.8); MEAN CELL VOLUME 93.3 FL (80.0-100.0); MEAN CORPUSCULAR HEMOGLOBIN 32.2 PG (27.0-34.0); MEAN CORPUSCULAR HGB CONC 34.4 % (32.0-36.0); MEAN PLATELET VOLUME 8.3 FL (7.0-11.0); MONO % 3.8 % (0.0-8.0); MONOCYTE # 0.5 TH/MM3 (0-0.9); NEUT % 87.4 % (16.0-70.0); PLATELET COUNT 220 TH/MM3 (150-450); RED CELL DISTRIBUTION WIDTH 13.5 % (11.6-17.2); WHITE BLOOD COUNT 13.7 TH/MM3 (4.0-11.0)
[2017-10-02 16:14] LABS: INTERNATIONAL NORMALIZED RATIO 1.1 RATIO; PROTHROMBIN TIME - PATIENT 10.9 SEC (9.8-11.6)
[2017-10-02 16:26] LABS: ALBUMIN 3.9 GM/DL (3.4-5.0); AST (GOT) 28 U/L (15-37); BICARBONATE 23.5 MEQ/L (21.0-32.0); BLOOD UREA NITROGEN 12 MG/DL (7-18); CALCIUM 9.1 MG/DL (8.5-10.1); CHLORIDE 91 MEQ/L (98-107); CREATININE 1.14 MG/DL (0.60-1.30); GLOMERULAR FILTRATION RATE 61 ML/MIN (>89); GLUCOSE,RANDOM 121 MG/DL (74-106); MAGNESIUM 1.6 MG/DL (1.5-2.5); SODIUM (NA) 128 MEQ/L (136-145)
[2017-10-02 16:27] LABS: ALT (GPT) 21 U/L (12-78)
[2017-10-02 16:31] LABS: ALKALINE PHOSPHATASE 63 U/L (45-117); TOTAL BILIRUBIN ADULT 0.6 MG/DL (0.2-1.0); TOTAL PROTEIN 7.5 GM/DL (6.4-8.2); TROPONIN I LESS THAN 0.02 NG/ML (0.02-0.05)
[2017-10-02] MEDS ORDERED: IOHEXOL 350 MG/ML 10 ML VIAL (for RAD DIAG) IVCONTRAST ONE (17:49)
[2017-10-02] MEDS ORDERED: HYDROmorphone HCL PF 1 MG/ML VIAL IV PUSH ONE (18:00)
--- NOTE | 2017-10-02 18:06 | RADRPT ---
EXAM DATE/TIME: 10/02/2017 17:44 [place] COMPARISON: No previous studies available for comparison. INDICATIONS : Constipation; small bowel obstruction vs. ileus. IV CONTRAST: 97 cc Omnipaque 350 (iohexol) IV ORAL CONTRAST: No oral contrast ingested. RADIATION DOSE: 6.42 CTDIvol (mGy) MEDICAL HISTORY : Gastroesophageal reflux disease. Cardiovascular disease Hypertension.Hiatal hernia and Ulcers SURGICAL HISTORY : None. ENCOUNTER: Initial ACUITY: 1 day PAIN SCALE: 7/10 LOCATION: abdomen TECHNIQUE: Volumetric scanning of the abdomen and pelvis was performed. Using automated exposure control and ad justment of the mA and/or kV according to patient size, radiation dose was kept as low as reasonably achievable to obtain optimal diagnostic quality images. DICOM format image data is available electro nically for review and comparison. FINDINGS: Lower lungs are clear. Liver is unremarkable. Multiple gallstones and benign-appearing gallbladder Spleen and pancreas unremarkable The adrenal glands appear normal There is symmetrical renal function. There is an a 4.7 cm renal cyst on the left. There is dilated proximal right ureter however I do not see the etiology for this. There is no stone.. Bowel gas pattern is unremarkable. There are no inflammatory changes are evident. There scattered diverticuli in the sigmoid colon without diverticulitis Surgical clips are seen in the left inguinal region Prostate is prominent Solid stool is seen in the sigmoid colon and rectal vault. Bone windows reveal extensive degenerative changes in the lower lumbar spine. CONCLUSION: 1. Gallstones and benign-appearing gallbladder 2. I do not see an obstruction or ileus 3. Nonspecific bowel gas pattern. 4. Large amount of stool in the rectal vault. Paulo Bloom MD FACR on October 02, 2017 at 18:00 Board Certified Radiologist. This report was verified electronically.
[2017-10-02] MEDS ORDERED: HYDROmorphone HCL PF 2 MG/ML VIAL IV ONE (18:15)
[2017-10-02] MEDS ORDERED: SOD PHOSPHATE/SOD BIPHOSPHATE (ADULT) ENEMA 133ML RECTAL ONE (18:15)
[2017-10-02 19:00] VITALS: BP 113/64; PULSE 67; RESP 18; TEMP 99.6; O2SAT 96
[2017-10-02] MEDS ORDERED: DOCU100C15 PO (21:41)
[2017-10-02] MEDS ORDERED: MINER RECTAL (21:41)
[2017-10-02 22:19] LABS: AMORPHOUS SEDIMENT, URINE MOD; BACTERIA, URINE RARE /hpf; BILIRUBIN, URINE NEG (NEG); BLOOD, URINE NEG (NEG); GLUCOSE,URINE NEG (NEG); KETONE, URINE 10 mg/dL (NEG); NITRITE,URINE NEG (NEG); URINE COLOR YELLOW (YELLW/STRAW); URINE LEUKOCYTE ESTERASE NEG (NEG)
[2017-10-02 22:20] VITALS: BP 121/71; PULSE 76; RESP 18; O2SAT 99
--- NOTE | 2017-10-03 20:00 | EKG ---
Date Performed: 10/02/2017 Time Performed: 16:20:30 PTAGE: 82 years EKG: SINUS BRADYCARDIA POSSIBLE LATERAL MYOCARDIAL INFARCTION MODERATE T-WAVE ABNORMALITY, CONSI SHANELL ANTERIOR ISCHEMIA Compared to previous tracing, nonspecific ST-T wave changes are more prominent anteriorly, suggesting anterior ischemia Clinical correlation is recommended ABNORMAL ECG PREVIOUS TRACING : 12/15/2016 04.37 DOCTOR: Davy Abad Interpretating Date/Time 10/03/2017 19:58:58
== END 2017-10-02 23:50 | disposition home or self-care (01) ==
LOC: NEPE 14:47
DX: K56.41 Fecal impaction (principal); R00.1 Bradycardia, unspecified; I10 Essential (primary) hypertension; I25.10 Atherosclerotic heart disease of native coronary artery without angina pectoris; N40.0 Benign prostatic hyperplasia without lower urinary tract symptoms; M19.90 Unspecified osteoarthritis, unspecified site; Z87.442 Personal history of urinary calculi; Z79.899 Other long term (current) drug therapy; Z79.82 Long term (current) use of aspirin
CPT/HCPCS: 74177; 80053; 81001; 83690; 83735; 84484; 85025; 85610; 85730; 93005; 96361; 96374; 96375; 96376; 99285; J1170; J2270; J2405; J7040; Q9967